=== PATIENT | female | born 1940 | race Caucasian/White ===

== ENCOUNTER → 2017-06-01 | Outpatient (CLI) | payer MEDICARE, OTHER | LOC: LAB.R 08:00 | PROVIDERS: ATTEND Family Medicine | DX: R35.0 Frequency of micturition (principal) | CPT/HCPCS: 87086 ==

== ENCOUNTER 2018-03-23 06:03 | Emergency (ER) | payer MEDICARE, OTHER ==
--- NOTE | 2018-03-23 06:48 | XRAY Report ---
EXAM: CHEST RADIOGRAPHY EXAM DATE: 03/23/2018 06:40 AM. CLINICAL HISTORY: Fever and cough. COMPARISON: 06/01/2017 TECHNIQUE: 2 views. FINDINGS: Lungs/Pleura: No focal opacities evident. No pleural effusion. No pneumothorax. Normal volumes. Mediastinum: Heart and mediastinal contours are unremarkable. Other: Multiple right upper quadrant clips are again noted. Multilevel degenerative changes within th e thoracic spine. IMPRESSION: Stable appearance of the chest without acute cardiopulmonary abnormality. [facility] Referring Provider Line: [phone] SITE ID: [id number]
--- NOTE | 2018-03-23 06:48 | XRAY Preliminary Report ---
Exam: XR CHEST 2 VIEW X-RAY IMPRESSION: Stable appearance of the chest without acute cardiopulmonary abnormality. [facility] SITE ID: [id number]
[2018-03-23 06:54] LABS: BASOPHILS % (AUTO) 0.7 %; EOSINOPHILS % (AUTO) 0.4 %; HGB - HEMOGLOBIN 13.1 g/dL (12.0-16.0); LYMPHOCYTES # (AUTO) 0.9 10^3/uL (1.5-3.5); LYMPHOCYTES % (AUTO) 28.8 %; MEAN CORPUSCULAR HGB CONC 33.3 g/dL (32.0-36.0); MEAN CORPUSCULAR VOLUME 93.3 fL (81.0-99.0); MEAN PLATELET VOLUME 8.2 fL (7.9-10.8); MONOCYTES # (AUTO) 0.5 10^3/uL (0.0-1.0); MONOCYTES % (AUTO) 17.1 %; NEUTROPHILS # (AUTO) 1.7 10^3/uL (1.5-6.6); PLT - PLATELET COUNT 150 10^3/uL (130-450); RED BLOOD COUNT 4.22 10^6/uL (4.20-5.40); RED CELL DISTRIBUTION WIDTH 13.6 % (12.0-15.0); WHITE BLOOD COUNT 3.2 x10^3/uL (4.8-10.8)
[2018-03-23 07:06] LABS: ALBUMIN 3.9 g/dL (3.2-5.5); ALBUMIN/GLOBULIN RATIO 1.2 (1.0-2.2); BILIRUBIN,TOTAL 0.7 mg/dL (0.2-1.0); CALCIUM 8.6 mg/dL (8.5-10.3); CREATININE 0.8 mg/dL (0.4-1.0); TOTAL PROTEIN 7.1 g/dL (6.7-8.2)
[2018-03-23 07:08] LABS: BILIRUBIN,URINE NEGATIVE (NEGATIVE); GLUCOSE, URINE (UA) NEGATIVE (NEGATIVE); KETONES,URINE (UA) NEGATIVE (NEGATIVE); LEUKOCYTE ESTERASE, URINE NEGATIVE (NEGATIVE); NITRITE,URINE NEGATIVE (NEGATIVE); OCCULT BLOOD,URINE NEGATIVE (NEGATIVE); PH,URINE 6.5 PH (5.0-7.5); PROTEIN,URINE NEGATIVE (NEGATIVE); UROBILINOGEN,URINE 0.2 (NORMAL) E.U./dL (NORMAL)
[2018-03-23 07:12] LABS: CLARITY,URINE CLEAR (CLEAR)
[2018-03-23] MEDS: BENZONATATE 100 MG CAPSULE PO STA (07:58)
[2018-03-23] MEDS: guaiFENesin/DEXTROMETHORPHAN 10 ML UDC PO STA (07:58)
--- NOTE | 2018-03-23 08:01 | ED Physician Documentation ---
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 now [place] with 5 days of fever cough fatigue myalgias no GI sx no leg swelling Review of Systems Constitutional: reports: Fever, Chills, Myalgias, Fatigue Respiratory: reports: Dyspnea, Cough GI: denies: Abdominal Pain, Vomiting, Diarrhea Musculoskeletal: denies: Extremity pain, Extremity swelling Neurologic: reports: Generalized weakness Endocrine: denies: Easy bruising / bleeding Immunocompromised: denies: Immunocompromised PD PAST MEDICAL HISTORY - Past Medical History Past Medical History: Yes Cardiovascular: [facility] Musculoskeletal: Osteoarthritis Other Past Medical History: GB Cancer - Past Surgical History Past Surgical History: Yes General: Cholecystectomy, Other Cardiovascular: Coronary stent - Present Medications Home Medications: Ambulatory Orders Medication Instructions Recorded Confirmed Aspirin [Children's Aspirin] 1 tab PO DAILY 03/23/18 03/23/18 Atorvastatin Calcium 40 mg PO DAILY 03/23/18 03/23/18 Benzonatate [Tessalon] 100 mg PO TID PRN #20 capsule 03/23/18 Estradiol 0.5 mg PO 03/23/18 Famotidine 40 mg PO BID 03/23/18 03/23/18 Fexofenadine HCl [Rosa Allergy] 180 mg DAILY 03/23/18 03/23/18 LORazepam [Ativan] 1 tab Q6H PRN 03/23/18 03/23/18 guaiFENesin/DEXTROMETHORPHAN 10 ml PO Q6H PRN #120 ml 03/23/18 [Robitussin Dm] hydroCHLOROthiazide 25 mg DAILY 03/23/18 03/23/18 [Hydrochlorothiazide] - Allergies Allergies/Adverse Reactions: Allergies Allergy/AdvReac Type Severity Reaction Status Date / Time Sulfa (Sulfonamide AdvReac Emesis Verified 03/23/18 06:30 Antibiotics) - Social History Does the pt smoke?: Yes Smoking Status: Current every day smoker Does the pt drink ETOH?: No Does the pt have substance abuse?: No - Immunizations Immunizations are current?: Yes - POLST Patient has POLST: No PD ED PE NORMAL - Vitals Vital signs reviewed: Yes - Neck Neck: Supple, no meningeal sign - Cardiac Cardiac: RRR - Respiratory Respiratory: No respiratory distress, Other (faint ronchi R lung) - Abdomen Abdomen: Soft, Non tender - Derm Derm: Normal color - Extremities Extremities: No tenderness to palpate, Normal ROM s pain, No edema, No calf tenderness / cord - Neuro Neuro: Alert and oriented X 3 Results - Vitals Vitals: Vital Signs - 24 hr 03/23/18 03/23/18 06:05 07:30 Temperature 37.4 C Heart Rate 84 63 Respiratory 18 18 Rate Blood Pressure 123/70 116/62 O2 Saturation 95 93 Oxygen O2 Source Room air - Labs Labs: Laboratory Tests 03/23/18 03/23/18 03/23/18 06:40 06:40 06:40 WBC 3.2 L RBC 4.22 Hgb 13.1 Hct 39.4 MCV 93.3 MCH 31.0 MCHC 33.3 RDW 13.6 Plt Count 150 MPV 8.2 Neut # 1.7 Lymph # 0.9 L [place] # 0.5 Eos # 0.0 Baso # 0.0 Absolute Nucleated RBC 0.00 Nucleated RBC % 0.0 Sodium 132 L Potassium 3.2 L Chloride 97 L Carbon Dioxide 25 Anion Gap 10.0 BUN 16 Creatinine 0.8 Estimated GFR (MDRD) 70 L Glucose 117 H Lactic Acid Calcium 8.6 Total Bilirubin 0.7 AST 29 ALT 25 Alkaline Phosphatase 47 Troponin I < 0.04 B-Natriuretic Peptide Total Protein 7.1 Albumin 3.9 Globulin 3.2 Albumin/Globulin Ratio 1.2 Lipase 28 Urine Color Urine Clarity Urine pH Ur Specific [place] Urine Protein Urine Glucose (UA) Urine Ketones Urine Occult Blood Urine Nitrite Urine Bilirubin Urine Urobilinogen Ur Leukocyte Esterase Ur Microscopic Review Urine Culture Comments Influenza A (Rapid) Influenza B (Rapid) 03/23/18 03/23/18 03/23/18 06:40 06:40 06:50 WBC RBC Hgb Hct MCV MCH MCHC RDW Plt Count MPV Neut # Lymph # [place] # Eos # Baso # Absolute Nucleated RBC Nucleated RBC % Sodium Potassium Chloride Carbon Dioxide Anion Gap BUN Creatinine Estimated GFR (MDRD) Glucose Lactic Acid 0.8 Calcium Total Bilirubin AST ALT Alkaline Phosphatase Troponin I B-Natriuretic Peptide 44 Total Protein Albumin Globulin Albumin/Globulin Ratio Lipase Urine Color YELLOW Urine Clarity CLEAR Urine pH 6.5 Ur Specific [place] 1.020 Urine Protein NEGATIVE Urine Glucose (UA) NEGATIVE Urine Ketones NEGATIVE Urine Occult Blood NEGATIVE Urine Nitrite NEGATIVE Urine Bilirubin NEGATIVE Urine Urobilinogen 0.2 (NORMAL) Ur Leukocyte Esterase NEGATIVE Ur Microscopic Review NOT INDICATED Urine Culture Comments NOT INDICATED Influenza A (Rapid) Influenza B (Rapid) 03/23/18 07:35 WBC RBC Hgb Hct MCV MCH MCHC RDW Plt Count MPV Neut # Lymph # [place] # Eos # Baso # Absolute Nucleated RBC Nucleated RBC % Sodium Potassium Chloride Carbon Dioxide Anion Gap BUN Creatinine Estimated GFR (MDRD) Glucose Lactic Acid Calcium Total Bilirubin AST ALT Alkaline Phosphatase Troponin I B-Natriuretic Peptide Total Protein Albumin Globulin Albumin/Globulin Ratio Lipase Urine Color Urine Clarity Urine pH Ur Specific [place] Urine Protein Urine Glucose (UA) Urine Ketones Urine Occult Blood Urine Nitrite Urine Bilirubin Urine Urobilinogen Ur Leukocyte Esterase Ur Microscopic Review Urine Culture Comments Influenza A (Rapid) Negative Influenza B (Rapid) POSITIVE H - Rads (name of study) CXR Radiology: See rad report (NACPD) PD MEDICAL DECISION MAKING - ED course ED course: 77 y/o f underlying CAD and hx cancer not on chemo now sx for 5 days flu B positive tamiflu unlikely to be beneficial at this point in time will tx symptomatically no pna nl VS feel safe to dc home Departure - Departure Disposition: Home, Self Care Clinical Impression: Influenza B Condition: Good Instructions: ED Flu Follow-Up: Delphine Rajan DO [Primary Care Provider] - Prescriptions: Benzonatate [Tessalon] 100 mg PO TID PRN #20 capsule PRN Reason: to ease cough guaiFENesin/DEXTROMETHORPHAN [Robitussin Dm] 10 ml PO Q6H PRN #120 ml PRN Reason: Cough Comments: You do not have pneumonia but you do have influenza B Antibiotics will not help influenza because it is a virus. There is an anti-viral medication called tamiflu but it is only helpful if started within the first 3 days of symptoms. It is OK for you to go home at this time on symptomatic medications (robitussin DM and tessalon for cough, tylenol for fever and body aches). You need to rest and drink plenty of fluids You may be sick for up to 2 weeks. One of the dangers of influenza is developing a secondary bacterial pneumonia after being run down by the flu - if you abruptly worsen please come back to the ER for another chest xray
[2018-03-23 08:17] VITALS: BP 114/79
[2018-03-23] MEDS: POTASSIUM CHLORIDE 20 MEQ TABLET PO STA (08:22)
== END 2018-03-23 08:24 | disposition home or self-care (01) ==
LOC: ED 06:03
DX: J10.1 Influenza due to other identified influenza virus with other respiratory manifestations (principal); C23 Malignant neoplasm of gallbladder; I25.2 Old myocardial infarction; M19.90 Unspecified osteoarthritis, unspecified site; Z79.82 Long term (current) use of aspirin; F17.200 Nicotine dependence, unspecified, uncomplicated
CPT/HCPCS: 36415; 51701; 71046; 80053; 81001; 81003; 83605; 83690; 83880; 84484; 85025; 87040; 87086; 87275; 87276; 99283; 99284

== ENCOUNTER 2018-03-24 11:50 | Emergency (ER) | payer MEDICARE, OTHER ==
[2018-03-24] MEDS ORDERED: KETOROLAC 60 MG/2 ML VIAL IVP STA (13:44)
[2018-03-24] MEDS ORDERED: SODIUM CHLORIDE 0.9% 1,000 ML IV ONE (13:44)
--- NOTE | 2018-03-24 13:46 | ED Physician Documentation ---
History of Present Illness - Stated complaint Stated Complaint: FLU LIKE SYMPTOM - Chief complaint Chief Complaint: Resp - History obtained from History obtained from: Patient - History of Present Illness Timing: Other (She was seen here yesterday with complaints of a few days worth of cough, myalgias, fevers and chills. Her blood work was notable for a white count of 3.2, potassium that was modestly low and repleted orally, and a positive swab for influenza B. She was called back today because her blood cultures are preliminarily growing gram-positive cocci which per gene testing is coagulase-negative Staphylococcus. She does not feel better today but she does not feel worse per se either. She does not have much of an appetite and still has body aches.) Review of Systems Constitutional: reports: Fever, Chills, Myalgias Respiratory: reports: Cough. denies: Dyspnea GI: denies: Abdominal Pain, Nausea PD PAST MEDICAL HISTORY - Past Medical History Cardiovascular: [place] Musculoskeletal: Osteoarthritis - Past Surgical History Past Surgical History: Yes General: Cholecystectomy, Other Cardiovascular: Coronary stent - Present Medications Home Medications: Ambulatory Orders Medication Instructions Recorded Confirmed Aspirin [Children's Aspirin] 1 tab PO DAILY 03/23/18 03/23/18 Atorvastatin Calcium 40 mg PO DAILY 03/23/18 03/23/18 Benzonatate [Tessalon] 100 mg PO TID PRN #20 capsule 03/23/18 Estradiol 0.5 mg PO 03/23/18 Famotidine 40 mg PO BID 03/23/18 03/23/18 Fexofenadine HCl [Rosa Allergy] 180 mg DAILY 03/23/18 03/23/18 LORazepam [Ativan] 1 tab Q6H PRN 03/23/18 03/23/18 guaiFENesin/DEXTROMETHORPHAN 10 ml PO Q6H PRN #120 ml 03/23/18 [Robitussin Dm] hydroCHLOROthiazide 25 mg DAILY 03/23/18 03/23/18 [Hydrochlorothiazide] - Allergies Allergies/Adverse Reactions: Allergies Allergy/AdvReac Type Severity Reaction Status Date / Time Sulfa (Sulfonamide AdvReac Emesis Verified 03/24/18 11:58 Antibiotics) - Social History Does the pt smoke?: Yes Smoking Status: Current every day smoker Does the pt drink ETOH?: No Does the pt have substance abuse?: No - Immunizations Immunizations are current?: Yes - POLST Patient has POLST: No PD ED PE NORMAL - Vitals Vital signs reviewed: Yes - General General: Alert and oriented X 3, No acute distress - HEENT HEENT: Pharynx benign - Neck Neck: Supple, no meningeal sign, No bony TTP - Cardiac Cardiac: RRR, No murmur - Respiratory Respiratory: No respiratory distress, Clear bilaterally - Abdomen Abdomen: Non tender - Neuro Neuro: Alert and oriented X 3, Normal speech Results - Vitals Vitals: Vital Signs - 24 hr 03/24/18 11:56 Temperature 36.0 C L Heart Rate 72 Respiratory 18 Rate Blood Pressure 120/63 O2 Saturation 97 Oxygen O2 Source Room air - Labs Labs: Laboratory Tests 03/24/18 03/24/18 03/24/18 14:06 14:06 14:06 WBC 4.1 L RBC 4.20 Hgb 13.4 Hct 39.6 MCV 94.4 MCH 32.0 H MCHC 33.9 RDW 14.1 Plt Count 125 L MPV 8.5 Neut # 2.3 Lymph # 1.2 L [place] # 0.5 Eos # 0.0 Baso # 0.0 Absolute Nucleated RBC 0.00 Nucleated RBC % 0.0 Sodium 135 Potassium 3.6 Chloride 99 L Carbon Dioxide 25 Anion Gap 11.0 BUN 20 Creatinine 0.9 Estimated GFR (MDRD) 61 L Glucose 116 H Lactic Acid 1.3 Calcium 8.7 Total Bilirubin 0.8 AST 32 ALT 25 Alkaline Phosphatase 51 Total Protein 7.3 Albumin 4.1 Globulin 3.2 Albumin/Globulin Ratio 1.3 Lipase 24 PD MEDICAL DECISION MAKING - ED course ED course: 77-year-old woman with influenza B was called back to the emergency department for positive blood culture. Given the preliminary result this is by far most likely to be a contaminant. Blood work and blood cultures will be repeated today. Departure - Departure Disposition: 01 Home, Self Care Clinical Impression: Influenza B, Blood bacterial culture positive Condition: Good Record reviewed to determine appropriate education?: Yes Instructions: ED Flu Comments: Given the actual pathogen the ground her blood culture yesterday, coagulase- negative Staphylococcus, I am sure this is a false positive blood culture. Continue your current treatment for influenza B, if today's blood cultures are positive we will call you. Return if worsening.
[2018-03-24 14:14] LABS: BASOPHILS % (AUTO) 0.6 %; EOSINOPHILS % (AUTO) 0.4 %; HGB - HEMOGLOBIN 13.4 g/dL (12.0-16.0); LYMPHOCYTES # (AUTO) 1.2 10^3/uL (1.5-3.5); LYMPHOCYTES % (AUTO) 29.7 %; MEAN CORPUSCULAR HGB CONC 33.9 g/dL (32.0-36.0); MEAN CORPUSCULAR VOLUME 94.4 fL (81.0-99.0); MEAN PLATELET VOLUME 8.5 fL (7.9-10.8); MONOCYTES # (AUTO) 0.5 10^3/uL (0.0-1.0); MONOCYTES % (AUTO) 12.9 %; NEUTROPHILS # (AUTO) 2.3 10^3/uL (1.5-6.6); NEUTROPHILS % (AUTO) 56.4 %; PLT - PLATELET COUNT 125 10^3/uL (130-450); RED CELL DISTRIBUTION WIDTH 14.1 % (12.0-15.0); WHITE BLOOD COUNT 4.1 x10^3/uL (4.8-10.8)
[2018-03-24 14:28] LABS: ALBUMIN 4.1 g/dL (3.2-5.5); ALBUMIN/GLOBULIN RATIO 1.3 (1.0-2.2); BILIRUBIN,TOTAL 0.8 mg/dL (0.2-1.0); CALCIUM 8.7 mg/dL (8.5-10.3); CREATININE 0.9 mg/dL (0.4-1.0); TOTAL PROTEIN 7.3 g/dL (6.7-8.2)
--- NOTE | 2018-03-24 15:29 | ED Physician Documentation ---
ED Addendum - Addendum Addendum: 03/24/18 15:28 unscheduled return visit - chart accessed for follow up and educational purposes
[2018-03-24 15:53] VITALS: BP 109/55
== END 2018-03-24 16:48 | disposition home or self-care (01) ==
LOC: ED 11:50
DX: Z04.8 Encounter for examination and observation for other specified reasons (principal); R78.89 Finding of other specified substances, not normally found in blood
CPT/HCPCS: 36415; 80053; 83605; 83690; 85025; 87040; 96374; 99283

== ENCOUNTER 2018-07-19 11:50 | Outpatient (CLI) | payer MEDICARE, OTHER ==
[2018-07-19] MEDS ORDERED: IOPAMIDOL-300 100 ML VIAL ONE (11:59)
[2018-07-19] MEDS ORDERED: IOPAMIDOL-300 100 ML VIAL IVP ONE (15:00)
--- NOTE | 2018-07-19 15:32 | CT Report ---
Reason: COUGH,GALLBLADDER CANCER Procedure Date: 07/19/2018 Accession Number: [id number] / [id number] Procedure: CT - Chest W/ CPT Code: FULL RESULT: EXAM: CT CHEST EXAM DATE: 07/19/2018 12:35 PM. CLINICAL HISTORY: Cough. Gallbladder cancer. COMPARISONS: None. TECHNIQUE: Routine helical CT imaging was performed through the chest. IV contrast: 100 mL Isovue-300. Reconstructions: Coronal and sagittal. In accordance with CT protocol optimization, one or more of the following dose reduction techniques were utilized for this exam: automated exposure control, adjustment of mA and/or KV based on patient size, or use of iterative reconstructive technique. FINDINGS: Lungs/Pleura: No nodules, bronchial thickening, consolidation, or edema. Pulmonary vasculature is normal. No pericardial or pleural effusion. No pneumothorax. Mediastinum: Normal. No adenopathy or masses. The heart and great vessels are normal. Bones: Unremarkable. Visualized Abdomen: There are cholecystectomy changes seen along the gallbladder fossa region. There is a geographic area of hypodense change in segment 5 adjacent to the gallbladder fossa measuring 4.0 x 3.0 cm with surgical clips seen within (image 62, series 3) which may be related to postoperative collection. A suspicious borderline enlarged lymph node is seen in the vinayak hepatis region measuring up to 2.4 x 2.0 cm (image 58, series 3). There is no biliary dilation. Small fat-containing ventral hernia is seen in the epigastric region. Other: Focal degenerative changes are seen in the visualized upper lumbar spine. No acute osseous abnormality is demonstrated. IMPRESSION: 1. No cardiopulmonary abnormality demonstrated. 2. Postoperative changes related to cholecystectomy. 4.0 x 3.0 cm hypoechoic area along the gallbladder fossa/segment 5 is seen which may be related to postoperative changes. Residual malignancy is not excluded. 3. Borderline prominent vinayak hepatis lymph node, suspicious. Correlation with PET scan could be helpful in further evaluation. 4. Small fat-containing ventral epigastric hernia. [facility]
== END 2018-07-19 11:51 | disposition home or self-care (01) ==
LOC: DI 11:50
PROVIDERS: ATTEND Family Medicine
DX: C23 Malignant neoplasm of gallbladder (principal); R05 Cough; K43.9 Ventral hernia without obstruction or gangrene
CPT/HCPCS: 71260; Q9967

== ENCOUNTER 2019-06-16 11:14 | Outpatient (CLI) | payer MEDICARE, OTHER ==
[2019-06-16] MEDS ORDERED: IOVERSOL 320 100 ML VIAL IVP ONE ×2 (11:30→12:49)
[2019-06-16] MEDS ORDERED: IOVERSOL 320 50 ML VIAL ONE (11:30)
[2019-06-16] MEDS ORDERED: IOVERSOL 320 50 ML VIAL PO ONE (12:49)
--- NOTE | 2019-06-19 12:30 | CT Report ---
Reason: GALLBLADDER CANCER Procedure Date: 06/16/2019 Accession Number: [id number] / [id number] Procedure: CT - Abdomen/Pelvis W CPT Code: FULL RESULT: EXAM: CT ABDOMEN AND PELVIS EXAM DATE: 06/16/2019 12:52 PM. CLINICAL HISTORY: History of gallbladder cancer, lower abdominal pain. COMPARISONS: None. TECHNIQUE: Routine helical CT imaging was performed through the abdomen and pelvis. IV contrast: OPTI 320 100 mL. Enteric contrast: Yes. Reconstructions: Coronal and sagittal. In accordance with CT protocol optimization, one or more of the following dose reduction techniques were utilized for this exam: automated exposure control, adjustment of mA and/or KV based on patient size, or use of iterative reconstructive technique. FINDINGS: Lung Bases: Unremarkable. Liver: Postsurgical changes are seen in the region of the gallbladder fossa with what is presumed to be an intrahepatic biloma, 2.7 x 3.0 x 4.1 cm, image 25 series 3 and image 20 series 5. Other hepatic hypodensities are too small to characterize. Otherwise, no suspicious hepatic mass. Gallbladder/Bile Ducts: Gallbladder surgically absent. Spleen: Normal. Pancreas: Normal. Adrenal Glands: Normal. Kidneys: Partially malrotated left kidney with hypodensity which is too small to characterize and no hydronephrosis. Right kidney is unremarkable. Peritoneal Cavity/Bowel: There is induration of pericecal ascending mesocolon with fat stranding. 1 cm centrally hypodense partially calcified soft tissue nodule in the left perirectal fat, possibly arising from rectosigmoid mesocolon is nonspecific. Remaining sigmoid colon demonstrates diverticulosis without diverticulitis. No abscess is identified. No free fluid or free air. No bowel obstruction. No lymphadenopathy by size criteria. The appendix is not visualized. Pelvic Organs: Pessary is noted in place. Bladder is unremarkable. Vasculature: No aneurysms or other significant abnormality. Bones: No aggressive osseous lesion is detected. Other: None. IMPRESSION: Inflammatory changes of a short segment of pericecal ascending colon, suspect colitis. The appendix is not visualized. In this setting, please correlate to history of appendectomy to ensure that appendicitis is not in the differential. [facility]
== END 2019-06-16 11:15 | disposition home or self-care (01) ==
LOC: LAB 11:14
PROVIDERS: ATTEND Internal Medicine Hematology & Oncology
DX: C23 Malignant neoplasm of gallbladder (principal)
CPT/HCPCS: 74177; Q9967

== ENCOUNTER 2019-07-05 10:17 | Outpatient (CLI) | payer MEDICARE, OTHER ==
--- NOTE | 2019-07-05 20:38 | CONSULTATION NOTE ---
Palliative Care Consultation - Referral Referring Provider: Dr. Clovis Marie Time of Visit: [id number] Referral setting: [facility] Referral Reason: Recurrent Gallbladder Cancer/Anxiety - Information Sources Records reviewed: Previous records reviewed History/Review of Systems obtained from: Patient, Family ( present for visit) Exam limitations: No limitations - History of Present Illness Brief History of Present Illness: This is a 79-year-old woman who is diagnosed with relapsed gallbladder cancer in 09/2018. She had previously received all her care down in [place], and is transitioning her care to the team up here at [facility]. She has felt more like a number in her previous system, and is appreciating the personalize care and support here and [place] be [place]. Her original diagnosis was in 05/2016, she was diagnosed at stage II. She presented originally with abdominal discomfort and was found to have enlarged gallbladder and underwent a laparoscopic cholecystectomy for acute cholecystitis. Unfortunately pathology review revealed a moderate to poorly differentiated adenocarcinoma. She had a partial hepatic tach to ma and retroperitoneal lymph node dissection on 07/2016. And received adjuvant chemotherapy for 6 cycles finishing March/2017. Recurrent disease was found on a PET scan restaging 09/28/2018 which revealed a local recurrence with a portal caval adenopathy. There was still no evidence of distant metastasis. She was not a candidate for surgical resection nor radiation. At that time she went on to do palliative chemotherapy with cis- [place] and gemcitabine from 10/24/2018 until . It is unclear why she received no further chemotherapy, that she came up here for second opinion she did have a repeat PET scan on 03/11/2019 that did reveal persistent portal caval adenopathy although it had improved. She did get a baseline CT of the abdomen pelvis as a benchmark for her current treatment, that did show inflammatory changes of her rdoz-hyzt-taohcolty colon; remaining sigmoid colon demonstrated diverticulitis for which she was treated with antibiotics and has had improvement. Patient does understand that her treatment is palliative in intent, she is quite anxious and overwhelmed by her change in health. She would like to be included in conversation and have a better understanding of her current disease burden as well as her prognosis. She herself at baseline is quite active has always been independent and likes to feel in control. She is feeling somewhat distressed, with her decreased functional status, poor activity tolerance, and changes in her physical and emotional well-being. She is hoping for improved quality of life, as well as quantity and is meeting with palliative care to establish rapport, explore goals of care, and continue to expand understanding of disease and trajectory Medical/Surgical History - Past Medical History Cardiovascular: reports: [place] Respiratory: reports: COPD Endocrine/Autoimmune: reports: HyPOthyroidism (currently not on any treatment; hx as a young adult) GI: reports: Diverticulitis Psych: reports: Depression, Anxiety Musculoskeletal: reports: Osteoarthritis, Other (carpal tunnel syndrome bilateral) MRSA Hx?: No - Past Surgical History General: reports: Cholecystectomy, Other Cardiovascular: reports: Coronary stent, Other (portacath x 1 year) Social History - Living Situation Living arrangement: At home Living Situation: With spouse/s.o. Support System: She and her have been 18 years. Between the 2 of them may have a combination of 10 children. They did come to [facility] about 10 years ago. He actually met through a [employer] group. Patient has long worked in the [employer] for a variety of different roles, and finds her marina quite important. Unfortunately she is dealing with her parents estate, and this is because some estrangement in her family of origin and much stress.She does feel like she has friends and neighbors here on the [place], and well supported. Her main sources support is her . Family History - Family History Family History: Mother: , CAD, Cancer, Father: , CAD, Brother: , Renal Disease/Failure Medications/Allergies - Medications Home Medications: Ambulatory Orders Medication Instructions Recorded Confirmed Atorvastatin Calcium 40 mg PO DAILY 03/23/18 07/06/19 Estradiol 0.5 mg PO DAILY 03/23/18 07/06/19 Famotidine 40 mg PO BID 03/23/18 07/06/19 Fexofenadine HCl [Rosa Allergy] 180 mg DAILY 03/23/18 07/06/19 LORazepam [Ativan] 0.5 mg PO Q6H PRN 03/23/18 07/06/19 guaiFENesin/DEXTROMETHORPHAN 10 ml PO Q6H PRN #120 ml 03/23/18 07/06/19 [Robitussin Dm] Losartan [Cozaar] 25 mg PO DAILY 04/20/19 07/06/19 Ascorbic Acid [Vitamin C] 1,000 mg PO DAILY 06/05/19 07/06/19 Aspirin [Aspirin EC] 1 tab PO DAILY 06/05/19 07/06/19 Azelaic Acid [Finacea] 1 applic TD BID PRN 06/05/19 07/06/19 Calcium Citrate/Vitamin D3 1 tab PO DAILY 06/05/19 07/06/19 [Citracal-Vit D3 200 mg-250 Tab] Cyanocobalamin (Vitamin B-12) 1,000 mcg PO DAILY 06/05/19 07/06/19 [B-12] Ellura 1 tab PO DAILY 06/05/19 07/06/19 Lactobacillus Rhamnosus GG 1 cap PO DAILY 06/05/19 07/06/19 [Culturelle] hydroCHLOROthiazide 50 mg PO DAILY 06/05/19 07/06/19 [Hydrochlorothiazide] Ondansetron [Ondansetron Odt] 8 mg PO Q8HR PRN 07/04/19 07/06/19 - Allergies Allergies/Adverse Reactions: Allergies Allergy/AdvReac Type Severity Reaction Status Date / Time Sulfa (Sulfonamide AdvReac Emesis Verified 07/04/19 10:25 Antibiotics) Review of Systems - Constitutional Constitutional: reports: Fatigue, Weakness, Weight loss. denies: Fever, Chills - Eyes Eyes: reports: Vision loss, Corrective lenses - Ears, Nose & Throat Ears, Nose & Throat: reports: Postnasal drainage - Cardiovascular Cardiovascular: reports: Decr. exercise tolerance - Respiratory Respiratory: reports: Cough, Other (smoking 1 pack every 3 days). denies: SOB at rest - Gastrointestinal Gastrointestinal: reports: Abdominal pain, Bloating, Poor appetite, Early satiety, Other (following diverticulitis diet). denies: Constipation, Diarrhea - Genitourinary Genitourinary: reports: Incontinence, Other (patient has a pessary; on estrogen for menopausal symptoms of mood/hot flashes/vaginal discomfort) - Musculoskeletal Musculoskeletal: reports: Back pain, Muscle weakness - Integumentary Integumentary: reports: Dryness, Other (hands roughened) - Neurological Neurological: reports: General weakness, Memory problems (mild STM) - Psychiatric Psychiatric: reports: Depression, Anxiety - Hematologic/Lymphatic Hematologic/Lymphatic: reports: Anemia - All Other Systems All Other Systems: reports: Reviewed and negative Physical Exam - Physical Exam General Appearance: positive: Mild distress, Anxious Eyes Bilateral: positive: Normal inspection ENT: positive: No signs of dehydration Neck: positive: No JVD, Trachea midline Cardiovascular: positive: Regular rate & rhythm Respiratory: positive: No respiratory distress, Diminished throughout. negative: Wheezes, Rales, Rhonchi Abdomen: positive: Soft, Tenderness Skin: positive: Pallor, Dryness Extremities: positive: No pedal edema Neurologic/Psychiatric: positive: Oriented x3, Depressed mood/affect Palliative Care - POLST Patient has POLST: No Pain: Pain improved, Comment (Patient does describe a deep achy visceral pain, mostly located in her left upper quadrant, she does have some right upper quadrant discomfort as well that has improved with antibiotics. Overall she does have some abdominal pressure and feels somewhat bloated. 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 She is finding her lack of energy, her activity intolerance, and needing to slow down quite frustrating. She is able to manage her own ADLs, but finds herself quite tired easily. I would put her at a PPS of 70% - Palliative Care Discussion: Patient does understand her treatment is palliative in nature, she had a fairly difficult experience with the surgeon and this interaction has left her somewhat reeling in the context of what to expect. She feels she would cope better if she understand a little bit more about her prognosis, though she is quite anxious and tearful when looking towards the future. She is hoping for both time and quality of life, we did spend some time discussing what quality of life meant for her. She has had a decline in her functional status as well as both physical and emotional changes and this is been difficult for her. Counseling and exploration was done regarding her anxiety, her previous coping styles, and previous experiences. Exploring ways to strengthen her emotional well-being and reframe her current situation. Counseling also provided regarding the role of palliative care for focus on quality of life issues,and to support her and her through this journey, hoping for the best but also addressing important issues along the way in dealing with her disease. We did not initiate discussion on advanced directives, will follow up with Dr. Marie on prognosis and patient's request for information. Results - Lab Results Lab results reviewed: Yes Impression and Recommendations - Palliative Care Impression: This is a rashi 79-year-old woman who unfortunately has relapsed gallbladder cancer who is currently receiving palliative chemotherapy. She presents with moderate symptom burden, with significant anxiety and depressive symptoms. Palliative care to provide support her pain and symptom management, anticipatory guidance, and advanced care planning. Recommendations/Counseling Done: 1. Weight loss. Patient has had 6 pound weight loss over the course of the last few months. She does present with early satiety, history of diverticulitis, and now needing diet modifications. Counseling provided and reinforced regarding small frequent meals, addition of Ensure and supplements, maintaining of hydration and goal to lose no further weight versus weight gain. 2. Fatigue. This is multifactorial in origin. Patient does present with anemia, is to have iron studies. Patient reports a history of hypothyroidism as a young adult, is wondering if this could be adding to it will add thyroid studies to her next blood draw. 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 3. Anxiety. Patient does present with history of anxiety, but does appear exacerbated. She is quite tearful, I suspect this is mixed with her depressive symptoms. Patient most likely would benefit from addition of Venlafaxine, patient hesitant to add medications will continue to explore. Counseling provided regarding the role as a tool in the management of her emotional well- being with her treatment. Counseling provided regarding cognitive behavioral approaches for strengthening current coping, including accessing her [place] community, she would be interested in meeting with the palliative care oil well shooter. Will make a referral. Counseling provided regarding reframing in the context of a "new normal". 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 4. Relapsed gallbladder cancer. Patient would like more information particularly somewhat visual, will follow up with Dr. Solano to review scans and his sister with understanding regarding both her current tumor burden and she would like more information on her prognosis. Though she gets quite anxious and tearful about this, she does feel like she does better with information. She is feeling quite confident and comfortable with the MAC team and her current treatment regimen. 5. Tobacco cessation. Patient is a smoker since age 42, does use this is part of her coping mechanisms. Does understand this is not in her best interest, we discussed just incrementally cutting down, and she does have chronic cough, and setting goals for 1 pack to last 4 days versus 3 days. 6. Advanced care planning. Given patient's level of anxiety and feeling overwhelmed, palliative care setting was in the context of establishing rapport, exploring symptom burden, patient's understanding of disease and coping mechanisms.Will build on this in future visits. Time Spent: 75 minutes with greater than 50% of this done in counseling regarding goals of care, anxiety and depression, role of palliative care, and anticipatory guidance. Plan to follow-up with Dr. Marie regarding prognosis, will add thyroid studies to next blood draw, and plan to meet again in 1 week
== END 2019-07-05 10:18 | disposition home or self-care (01) ==
LOC: PC 10:17
PROVIDERS: ATTEND Nurse Practitioner Adult Health
DX: Z51.5 Encounter for palliative care (principal); R63.4 Abnormal weight loss; R68.81 Early satiety; R53.83 Other fatigue; F41.9 Anxiety disorder, unspecified; F32.9 Major depressive disorder, single episode, unspecified; C23 Malignant neoplasm of gallbladder; F17.210 Nicotine dependence, cigarettes, uncomplicated; Z79.899 Other long term (current) drug therapy; Z79.82 Long term (current) use of aspirin
CPT/HCPCS: 99205

== ENCOUNTER 2019-07-12 12:17 | Outpatient (CLI) | payer MEDICARE, OTHER ==
--- NOTE | 2019-07-12 14:09 | CONSULTATION NOTE ---
Palliative Care Follow Up - Referral Referring Provider: Dr. Clovis Marie Time of Visit: Referral setting: [facility] Referral Reason: Fatigue/anxiety/Gallbladder CA - Information Sources Records reviewed: RN notes reviewed, Previous records reviewed History/Review of Systems obtained from: Patient, Family ( at visit) Exam limitations: No limitations - History of Present Illness Update Brief HPI Update: This is a rashi 79-year-old woman who was diagnosed with relapsed gallbladder cancer 09/2018. Additionally her care appeared to would be island. She was to receive her cis-[place] and gemcitabine, but was neutropenic with a WBC of 2.3 and neutrophils 0.5. She also is quite anemic with a hemoglobin 9.1 and hematocrit of 27.2. Does complain of severe fatigue, activity intolerance, and breathlessness with activity. Despite her underlying anxiety, she does seem to be taking this in stride, she is getting a liter of fluid, and will be receiving some Neupogen. Patient has had chemotherapy before, and is not overtly concerned, her goal though is to better understand her disease process right n ow, and is looking forward to her appointment with Dr. Montejo. She reports that her abdominal pain is much improved, she does have some mild left upper quadrant tenderness on palpation, her right-sided discomfort has resolved. She continues with high anxiety, though did take a Lorazepam previous to her visit and feels like she is doing better today. She does have early satiety, denies nausea, and is working improving her intake. Social History - Living Situation Living arrangement: At home Living Situation: With spouse/s.o. Support System: She and her travel up to would be often in the summer, they do have a home in [place]. They have been for 18 years, have a combination between the 2 of them of 10 children and multiple grandchildren and great- grandchildren. She is feeling good about transitioning her care. Medications/Allergies - Medications Home Medications: Ambulatory Orders Medication Instructions Recorded Confirmed Atorvastatin Calcium 40 mg PO DAILY 03/23/18 07/12/19 Estradiol 0.5 mg PO DAILY 03/23/18 07/12/19 Famotidine 40 mg PO BID 03/23/18 07/12/19 Fexofenadine HCl [Rosa Allergy] 180 mg DAILY 03/23/18 07/12/19 LORazepam [Ativan] 0.5 mg PO Q6H PRN 03/23/18 07/12/19 guaiFENesin/DEXTROMETHORPHAN 10 ml PO Q6H PRN #120 ml 03/23/18 07/12/19 [Robitussin Dm] Losartan [Cozaar] 50 mg PO DAILY 04/20/19 07/12/19 Ascorbic Acid [Vitamin C] 1,000 mg PO DAILY 06/05/19 07/12/19 Aspirin [Aspirin EC] 1 tab PO DAILY 06/05/19 07/12/19 Azelaic Acid [Finacea] 1 applic TD BID PRN 06/05/19 07/12/19 Calcium Citrate/Vitamin D3 1 tab PO DAILY 06/05/19 07/12/19 [Citracal-Vit D3 200 mg-250 Tab] Cyanocobalamin (Vitamin B-12) 1,000 mcg PO DAILY 06/05/19 07/12/19 [B-12] Ellura 1 tab PO DAILY 06/05/19 07/12/19 Lactobacillus Rhamnosus GG 1 cap PO DAILY 06/05/19 07/12/19 [Culturelle] hydroCHLOROthiazide 25 mg PO DAILY 06/05/19 07/12/19 [Hydrochlorothiazide] Ondansetron [Ondansetron Odt] 8 mg PO Q8HR PRN 07/04/19 07/12/19 Potassium Chloride [Micro-K] 20 meq PO DAILY 07/12/19 07/12/19 - Allergies Allergies/Adverse Reactions: Allergies Allergy/AdvReac Type Severity Reaction Status Date / Time Sulfa (Sulfonamide AdvReac Emesis Verified 07/04/19 10:25 Antibiotics) Review of Systems - Constitutional Constitutional: reports: Fatigue, Weakness, Weight loss. denies: Fever, Chills - Eyes Eyes: reports: Vision loss, Corrective lenses - Ears, Nose & Throat Ears, Nose & Throat: reports: Nasal congestion (allergies). denies: Mouth lesions - Cardiovascular Cardiovascular: reports: Exertional dyspnea, Decr. exercise tolerance - Respiratory Respiratory: reports: Cough (smoker's cough), SOB with exertion, Other (continues smoking). denies: Wheezing, SOB at rest - Gastrointestinal Gastrointestinal: denies: Constipation, Diarrhea, Nausea - Genitourinary Genitourinary: denies: Dysuria - Musculoskeletal Musculoskeletal: reports: Muscle weakness - Integumentary Integumentary: reports: Rash (rosacia), Dryness - Neurological Neurological: reports: General weakness - Psychiatric Psychiatric: reports: Depression, Anxiety - Hematologic/Lymphatic Hematologic/Lymphatic: reports: Anemia, Other (recently treated for diverticulitis) - All Other Systems All Other Systems: reports: Reviewed and negative Physical Exam - Vital Signs Temperature: 36.6 C Pulse Rate: 64 Respiratory Rate: 18 Blood Pressure: 115/61 - Physical Exam General Appearance: positive: Alert, Anxious Eyes Bilateral: positive: Normal inspection ENT: positive: No signs of dehydration. negative: Oral lesions Neck: positive: No JVD, Trachea midline Cardiovascular: positive: Regular rate & rhythm Respiratory: positive: No respiratory distress, Diminished throughout. negative: Wheezes, Rales, Rhonchi Abdomen: positive: Soft, Tenderness (LUQ improved) Skin: positive: Pallor, Dryness Extremities: positive: No pedal edema Neurologic/Psychiatric: positive: Oriented x3, Mood/affect nml, Weakness Palliative Care - POLST Patient has POLST: No POLST Status: Full Code Pain: Pain improved (LUQ; mild and improved right sided discomfort resolved) Tiredness/Fatigue: Severe (7-10) Drowsiness/Sedation: Moderate (4-6) Nausea: None Depression: Mild (1-3) Anxiety: Moderate (4-6) Dyspnea: Mild (1-3) Anorexia: Mild (1-3) Sleep: Variable sleep pattern Performance Status: Patient is feeling much more fatigued and with less tolerance of activity. She is trying to pace herself and take short frequent walks. She is able to manage her own ADLs, counseling provided regarding the impact of anemia on fatigue and activity. - Palliative Care Discussion: Less anxious today, she is quite though wanting to better be able to understand where her disease is that, as well as what to expect. We did discuss in the context if she wanted information around prognosis, she feels this would help her better plan and cope. Though she is quite upset at the recurrence of her disease, as well as her experiences with providers up to this point. She does feel quite confident in Dr. Marie, And is hopeful for not only quality of life, but also prolonged quantity of life as well. She wants to do "what I can do to get better". We revisited some of her past positive coping mechanisms, and th ings have brought her supa. We discussed in the context of meeting again after Dr. Solano's appointment, to further discuss anticipatory guidance and advanced care planning. Results - Lab Results Lab results reviewed: Yes Lab and Imaging Results: 07/04 potassium 3.2; glucose 180 Impression and Recommendations - Palliative Care Impression: This is a rashi 79-year-old woman who has relapsed gallbladder cancer, who now presents with palencia cytopenia. She is currently receiving palliative chemotherapy, with improved symptom burden, but significant anxiety and fatigue. Palliative care to provide support for pain and symptom management, an ticipatory guidance and advanced care planning. Recommendations/Counseling Done: 1. Fatigue. This is multifactorial in origin. Counseling presented regarding patient's anemia, she is due to have iron studies. She will with her labs on Wednesday get a TSH, consult with Dr. Marie regarding preferred panel. Patient does have a history of hypothyroidism. Patient counseled to continue short periods of activity, balancing with pacing herself. 2. Hypokalemia. Patient with fatigue, will go ahead and do potassium replacement in the context of following as patient is on losartan. Will have patient initiate with potassium capsules 10 mEq 2 tabs daily until follow-up with labs next week. Patient does have issues with swallowing medications, consult with pharmacist best formulation to use. Did order from [employer]. 3. Anxiety. Patient does present with a history of anxiety, continues to be fluctuating for patient and often interferes in her quality of life. Patient again would most likely benefit from the addition of venlafaxine, but will await revisiting again until after consult with oncology. 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 4. Relapsed gallbladder cancer. Will reach out to Dr. Marie regarding prognostication and patient's hope to be able to review scans and further information regarding her treatment plan. 5. Advanced care planning. Will do courtesy check-in regarding labs and potassium next week, plan to schedule visit after meeting with Dr. Marie to be able to do further conversations regarding advanced care planning. Time Spent: 40 minutes with greater than 50% of this done in counseling and coordination of care with MAC team and oncologist, palliative care to continue to provide support for anxiety, anticipatory guidance, and Advanced care planning.
== END 2019-07-12 12:18 | disposition home or self-care (01) ==
LOC: PC 12:17
PROVIDERS: ATTEND Nurse Practitioner Adult Health
DX: Z51.5 Encounter for palliative care (principal); R53.83 Other fatigue; E87.6 Hypokalemia; F41.9 Anxiety disorder, unspecified; D61.818 Other pancytopenia; C23 Malignant neoplasm of gallbladder; F17.200 Nicotine dependence, unspecified, uncomplicated; Z79.899 Other long term (current) drug therapy
CPT/HCPCS: 99215

== ENCOUNTER 2019-07-13 08:01 | Outpatient (CLI) | payer MEDICARE, OTHER | END 2019-07-13 08:02 | disposition critical access hospital (66) | LOC: EMS 08:01 | PROVIDERS: ATTEND Surgery | DX: M54.5 Low back pain (principal) | CPT/HCPCS: A0425; A0429 ==

== ENCOUNTER 2019-07-13 08:21 | Emergency (ER) | payer MEDICARE, OTHER ==
[2019-07-13 09:13] LABS: BASOPHILS % (AUTO) 0.7 %; EOSINOPHILS % (AUTO) 0.3 %; HGB - HEMOGLOBIN 8.7 g/dL (12.0-16.0); LYMPHOCYTES % (AUTO) 20.3 %; MEAN CORPUSCULAR HGB CONC 33.1 g/dL (32.0-36.0); MEAN CORPUSCULAR VOLUME 99.6 fL (81.0-99.0); MEAN PLATELET VOLUME 9.9 fL (7.9-10.8); MONOCYTES % (AUTO) 9.7 %; NEUTROPHILS % (AUTO) 68.3 %; PLT - PLATELET COUNT 179 10^3/uL (130-450); RED BLOOD COUNT 2.64 10^6/uL (4.20-5.40); WHITE BLOOD COUNT 10.2 x10^3/uL (4.8-10.8)
[2019-07-13 09:22] LABS: ALBUMIN 3.6 g/dL (3.2-5.5); ALBUMIN/GLOBULIN RATIO 1.3 (1.0-2.2); BILIRUBIN,TOTAL 0.5 mg/dL (0.2-1.0); CALCIUM 8.5 mg/dL (8.5-10.3); TOTAL PROTEIN 6.4 g/dL (6.7-8.2)
[2019-07-13] MEDS ORDERED: LIDOCAINE VISCOUS 2% 15 ML UDC MM STA (09:26)
[2019-07-13] MEDS ORDERED: MAG HYDROX/AL HYDROX/SIMETH 30 ML UDC PO STA (09:26)
--- NOTE | 2019-07-13 09:36 | XRAY Report ---
Reason: chest pain Procedure Date: 07/13/2019 Accession Number: [id number] / [id number] Procedure: XR - Chest 1 View X-Ray CPT Code: 98565 FULL RESULT: EXAM: CHEST RADIOGRAPHY EXAM DATE: 07/13/2019 09:18 AM. CLINICAL HISTORY: Chest pain. COMPARISON: CHEST 2 VIEW 03/23/2018 6:25 AM CHEST W/ 07/19/2018 12:29 PM. TECHNIQUE: 1 view. FINDINGS: Lungs/Pleura: No focal opacities evident. No pleural effusion. No pneumothorax. Mediastinum: Heart size is stable per aorta is mildly tortuous. Other: Right IJ portacatheter is present with the tip in the mid SVC. Surgical clips are seen in the right upper quadrant, as before. IMPRESSION: 1. No acute disease in the chest. RADIA
[2019-07-13 09:43] LABS: ABNORMAL LYMPHS % (MANUAL) 0 %
[2019-07-13 09:48] LABS: BAND NEUTROPHILS % (MANUAL) 23 %; DIFFERENTIAL COMMENT MANUAL DIFFERENTIAL; LYMPHOCYTES # (MANUAL) 3.5 10^3/uL (1.5-3.5); LYMPHOCYTES % (MANUAL) 34 %; METAMYELOCYTES % (MANUAL) 1 %; MONOCYTES # (MANUAL) 0.6 10^3/uL (0.0-1.0)
[2019-07-13 09:49] LABS: PLATELET ESTIMATE, MANUAL NORMAL (130-450,000) (NORMAL)
--- NOTE | 2019-07-13 10:12 | ED Physician Documentation ---
History of Present Illness - Stated complaint Stated Complaint: BACK PX - Chief complaint Chief Complaint: Cardiac - History obtained from History obtained from: Patient - Additonal information Additional information: The patient is a 79-year-old female with a history of relapsed gallbladder cancer, who underwent Neupogen injection yesterday, and who presents with anterior chest and lower back pain. She was initially diagnosed with gallbladder cancer in 2014. She was diagnosed with relapse in September 2018. She was to get chemotherapy treatment yesterday, but was found to be pancytopenic with a white count of 2.3 with 0.5 neutrophils, hemoglobin 9.1, and hematocrit 27.2. She was therefore not given chemotherapy, but was given Neupogen injection, and supplemental iron. She had one episode of vomiting last night. This morning she had bone pain in her anterior chest and in her back. She denies cough, shortness of breath, abdominal pain, or dysuria. Her past medical history, in addition to the above, is significant for coronary artery disease with [place] at age 57, and coronary stent placement. Review of Systems Constitutional: reports: Fatigue. denies: Fever Ears: denies: Tinnitus/ringing Nose: denies: Congestion Throat: denies: Sore throat Cardiac: reports: Chest pain / pressure Respiratory: denies: Dyspnea, Cough GI: reports: Vomiting (Once last night.). denies: Abdominal Pain, Diarrhea : denies: Dysuria Skin: denies: Rash Musculoskeletal: reports: Back pain Neurologic: reports: Generalized weakness. denies: Focal weakness, Numbness, Headache PD PAST MEDICAL HISTORY - Past Medical History Cardiovascular: [place] Respiratory: COPD Endocrine/Autoimmune: HyPOthyroidism GI: Diverticulitis, Other (Gallbladder cancer) Psych: Depression, Anxiety Musculoskeletal: Osteoarthritis, Other - Past Surgical History Past Surgical History: Yes General: Cholecystectomy, Other Cardiovascular: Coronary stent, Other - Present Medications Home Medications: Ambulatory Orders Medication Instructions Recorded Confirmed Atorvastatin Calcium 40 mg PO DAILY 03/23/18 07/12/19 Estradiol 0.5 mg PO DAILY 03/23/18 07/12/19 Famotidine 40 mg PO BID 03/23/18 07/12/19 Fexofenadine HCl [Rosa Allergy] 180 mg DAILY 03/23/18 07/12/19 LORazepam [Ativan] 0.5 mg PO Q6H PRN 03/23/18 07/12/19 guaiFENesin/DEXTROMETHORPHAN 10 ml PO Q6H PRN #120 ml 03/23/18 07/12/19 [Robitussin Dm] Losartan [Cozaar] 50 mg PO DAILY 04/20/19 07/12/19 Ascorbic Acid [Vitamin C] 1,000 mg PO DAILY 06/05/19 07/12/19 Aspirin [Aspirin EC] 1 tab PO DAILY 06/05/19 07/12/19 Azelaic Acid [Finacea] 1 applic TD BID PRN 06/05/19 07/12/19 Calcium Citrate/Vitamin D3 1 tab PO DAILY 06/05/19 07/12/19 [Citracal-Vit D3 200 mg-250 Tab] Cyanocobalamin (Vitamin B-12) 1,000 mcg PO DAILY 06/05/19 07/12/19 [B-12] Ellura 1 tab PO DAILY 06/05/19 07/12/19 Lactobacillus Rhamnosus GG 1 cap PO DAILY 06/05/19 07/12/19 [Culturelle] hydroCHLOROthiazide 25 mg PO DAILY 06/05/19 07/12/19 [Hydrochlorothiazide] Ondansetron [Ondansetron Odt] 8 mg PO Q8HR PRN 07/04/19 07/12/19 Potassium Chloride [Micro-K] 20 meq PO DAILY 07/12/19 07/12/19 - Allergies Allergies/Adverse Reactions: Allergies Allergy/AdvReac Type Severity Reaction Status Date / Time Sulfa (Sulfonamide AdvReac Emesis Verified 07/04/19 10:25 Antibiotics) - Social History Does the pt smoke?: Yes Smoking Status: Current some day smoker Does the pt drink ETOH?: No Does the pt have substance abuse?: No - Immunizations Immunizations are current?: Yes - POLST Patient has POLST: No PD ED PE NORMAL - Vitals Vital signs reviewed: Yes (Borderline systolic hypertension initially.) - General General: Alert and oriented X 3, Well developed/nourished - HEENT HEENT: Atraumatic, Pharynx benign - Neck Neck: No adenopathy, No JVD - Cardiac Cardiac: RRR - Respiratory Respiratory: No respiratory distress, Clear bilaterally - Abdomen Abdomen: Soft, Non tender - Back Back: No CVA TTP, No spinal TTP - Derm Derm: No rash - Extremities Extremities: No edema, No calf tenderness / cord - Neuro Neuro: Alert and oriented X 3, No motor deficit, Normal speech Results - Vitals Vitals: Oxygen O2 Source Room air - EKG (time done) 08:30 Rate: Rate (enter#) (68) Rhythm: NSR [place]: Normal Intervals: Normal CO Ischemia: Normal ST segments Other comments: Other comments (RSR' in V1, consistent with RVH.) Compare to prior EKG: Old EKG unavailable Computer interpretation: Agree with computer - Labs Labs: Laboratory Tests 07/13/19 07/13/19 07/13/19 08:55 08:55 08:55 WBC 10.2 RBC 2.64 L Hgb 8.7 L Hct 26.3 L MCV 99.6 H MCH 33.0 H MCHC 33.1 RDW 14.0 Plt Count 179 MPV 9.9 Neut # (Auto) Not Reportable Lymph # (Auto) Not Reportable [place] # (Auto) Not Reportable Eos # (Auto) Not Reportable Baso # (Auto) Not Reportable Absolute Nucleated RBC Not Reportable Total Counted 100 Band Neuts % (Manual) 23 H Abnorm Lymph % (Manual) 0 Metamyelocytes % 1 H Nucleated RBC % Not Reportable Neutrophils # (Manual) 6.0 Lymphocytes # (Manual) 3.5 Monocytes # (Manual) 0.6 Eosinophils # (Manual) 0.0 Basophils # (Manual) 0.0 Differential Comment MANUAL DIFFERENTIAL Manual Slide Review Indicated WBC Morphology 1+ VACUOLATION Platelet Estimate NORMAL (130-450,000) RBC Morph Micro Appear 1+ ANISOCYTOSIS Sodium 142 Potassium 4.1 Chloride 107 Carbon Dioxide 26 Anion Gap 9.0 BUN 18 Creatinine 1.0 Estimated GFR (MDRD) 54 L Glucose 92 Calcium 8.5 Total Bilirubin 0.5 AST 21 ALT 19 Alkaline Phosphatase 50 Troponin I High Sens 6.7 Total Protein 6.4 L Albumin 3.6 Globulin 2.8 Albumin/Globulin Ratio 1.3 Lipase 28 - Rads (name of study) 1-view CXR Radiology: Prelim report reviewed, EMP read contemporaneously, See rad report (No acute disease in the chest.) PD MEDICAL DECISION MAKING - ED course Complexity details: reviewed old records, reviewed results, re-evaluated patient, considered differential, d/w patient, d/w family, d/w cosmetic sales consultant ED course: The patient's presentation is most consistent with bone pain related to Neupogen injection. Coronary ischemia was considered, given her past history of coronary artery disease, but her symptoms are atypical for cardiac ischemia. In addition her EKG reveals no acute ischemic abnormalities, and high-sensitivity troponin is negative. CBC reveals white count that is significantly improved today from yesterday at 10.2. She remains anemic with a hemoglobin of 8.7, and hematocrit 26.3. Treatment in the emergency department included administration of GI cocktail which provided slight improvement. I discussed her condition with Dr. Marie, who confirms that these symptoms are common with Neupogen injection, and advises administration of Claritin. 10 mg Claritin was administered orally. At the time of discharge the patient's symptoms had improved. She is being discharged with prescription for Claritin. I discussed with her and her family the diagnosis, outpatient treatment and follow-up, as well as potentially worrisome signs or symptoms that should prompt reevaluation in the emergency department. Departure - Departure Disposition: 01 Home, Self Care Clinical Impression: Gallbladder cancer Back pain Qualifiers: Back pain location: low back pain Chronicity: acute Back pain laterality: midline Sciatica presence: without sciatica Qualified Code(s): M54.5 - Low back pain Anemia Qualifiers: Anemia type: unspecified type Qualified Code(s): D64.9 - Anemia, unspecified Condition: Stable Instructions: ED Neck Back Pain General Follow-Up: Delphine Rajan DO [Primary Care Provider] - Clovis Marie MD [Physician No Access] - Comments: Continue your previously prescribed medications. Follow-up with Dr. Marie as planned. Return to the emergency department if you develop increasing pain, shortness of breath, persistent vomiting, or otherwise worsening symptoms. Discharge Date/Time: 07/13/19 11:17
[2019-07-13] MEDS ORDERED: LORATADINE 10 MG TABLET PO STA (10:25)
[2019-07-13 10:57] VITALS: BP 115/60
== END 2019-07-13 11:17 | disposition home or self-care (01) ==
LOC: EDUNIT# → ED 08:21
DX: C23 Malignant neoplasm of gallbladder (principal); M54.5 Low back pain; D64.9 Anemia, unspecified; F17.200 Nicotine dependence, unspecified, uncomplicated; Z79.899 Other long term (current) drug therapy
CPT/HCPCS: 36415; 71045; 80053; 83690; 84484; 85025; 93005; 99284; A9270

== ENCOUNTER 2019-07-19 10:08 | Outpatient (CLI) | payer MEDICARE, OTHER | END 2019-07-19 10:09 | disposition home or self-care (01) | LOC: PC 10:08 | PROVIDERS: ATTEND Nurse Practitioner Adult Health | DX: Z51.5 Encounter for palliative care (principal); F41.9 Anxiety disorder, unspecified; Z79.899 Other long term (current) drug therapy ==

== ENCOUNTER 2019-08-16 10:08 | Outpatient (CLI) | payer MEDICARE, OTHER ==
--- NOTE | 2019-08-16 14:30 | CONSULTATION NOTE ---
Palliative Care Follow Up - Referral Referring Provider: Dr. Clovis Marie Time of Visit: 09-19 Referral setting: [facility] [place] Referral Reason: Anxiety/Relapsed Gallbladder CA - Information Sources Records reviewed: RN notes reviewed, Previous records reviewed History/Review of Systems obtained from: Patient Exam limitations: No limitations - History of Present Illness Update Brief HPI Update: This is a 79 year old woman with relapsed gallbladder cancer, with poor tolerance of her last palliative chemotherapy of cis-salamatof/gemcitabine. She experienced severe neutropenia, severe fatigue, and persistent nausea. She is currently going to start radiation therapy with Dr. Sergio Mercado at [place], for concurrent chemoradiation with Xeloda this next week. She presents is quite anxious today, had had her chemo teaching session, but still with multiple questions. She is currently receiving 1 unit of packed red blood cells, she continues with anemia, as feeling somewhat overwhelmed by her symptom burden as well as the uncertainty of her future. Patient's past medical history includes original gallbladder cancer diagnosed at stage II 05/2016, status post partial hepatectomy/choli/erick dissection 07/2016, and previous gemcitabine 10/2016 to 03/2017. She was diagnosed with relapsed gallbladder cancer 09/2018. She has underlying COPD, continues to smoke, hypothyroidism, diverticulitis, depression/anxiety, osteoarthritis, and carpal tunnel syndrome. His coronary artery disease with a coronary stent, and Port -A-Cath placement. Social History - Living Situation Living arrangement: At home Living Situation: With spouse/s.o. Support System: Patient and her were for 18 years, he is been down in [place] the last few weeks. They do have a combination of 10 children between the 10 of them, with multiple grandchildren and great-grandchildren. Her son is currently with her and has been supporting her this last few weeks. She is relocated to the [facility], she had been going back and forth, but this is too overwhelming at this point and feels like her care is well managed here. Medications/Allergies - Medications Home Medications: Ambulatory Orders Medication Instructions Recorded Confirmed Atorvastatin Calcium 40 mg PO DAILY 03/23/18 08/14/19 Estradiol 0.5 mg PO DAILY 03/23/18 08/14/19 Famotidine 40 mg PO BID 03/23/18 08/14/19 Fexofenadine HCl [Rosa Allergy] 180 mg DAILY 03/23/18 08/14/19 LORazepam [Ativan] 0.5 mg PO Q6H PRN 03/23/18 08/14/19 guaiFENesin/DEXTROMETHORPHAN 10 ml PO Q6H PRN #120 ml 03/23/18 08/14/19 [Robitussin Dm] Losartan [Cozaar] 50 mg PO DAILY 04/20/19 08/14/19 Ascorbic Acid [Vitamin C] 1,000 mg PO DAILY 06/05/19 08/14/19 Aspirin [Aspirin EC] 1 tab PO DAILY 06/05/19 08/14/19 Azelaic Acid [Finacea] 1 applic TD BID PRN 06/05/19 08/14/19 Calcium Citrate/Vitamin D3 1 tab PO DAILY 06/05/19 08/14/19 [Citracal-Vit D3 200 mg-250 Tab] Cyanocobalamin (Vitamin B-12) 1,000 mcg PO DAILY 06/05/19 08/14/19 [B-12] Ell[place] 1 tab PO DAILY 06/05/19 08/14/19 Lactobacillus Rhamnosus GG 1 cap PO DAILY 06/05/19 08/14/19 [Culturelle] hydroCHLOROthiazide 25 mg PO DAILY 06/05/19 08/14/19 [Hydrochlorothiazide] Ondansetron [Ondansetron Odt] 8 mg PO Q8HR PRN 07/04/19 08/14/19 Potassium Chloride [Micro-K] 20 meq PO DAILY 07/12/19 08/14/19 - Allergies Allergies/Adverse Reactions: Allergies Allergy/AdvReac Type Severity Reaction Status Date / Time Sulfa (Sulfonamide AdvReac Emesis Verified 08/14/19 11:06 Antibiotics) Review of Systems - Constitutional Constitutional: reports: Fatigue, Poor appetite, Weight loss. denies: Fever, Chills - Eyes Eyes: reports: Vision loss, Corrective lenses - Ears, Nose & Throat Ears, Nose & Throat: reports: Hearing loss (mild). denies: Mouth lesions - Cardiovascular Cardiovascular: reports: Decr. exercise tolerance. denies: Chest pain - Respiratory Respiratory: reports: SOB with exertion. denies: SOB at rest - Gastrointestinal Gastrointestinal: reports: Nausea, Bloating, Poor appetite, Early satiety, Other (gas pains) - Genitourinary Genitourinary: reports: Frequency - Musculoskeletal Musculoskeletal: reports: Muscle weakness - Integumentary Integumentary: reports: Dryness - Neurological Neurological: reports: General weakness - Psychiatric Psychiatric: reports: Depression, Anxiety - Hematologic/Lymphatic Hematologic/Lymphatic: reports: Anemia. denies: Recurrent infections - All Other Systems All Other Systems: reports: Reviewed and negative Physical Exam - Vital Signs Temperature: 36.4 C Pulse Rate: 65 Respiratory Rate: 18 Blood Pressure: 118/53 - Physical Exam General Appearance: positive: Mild distress, Anxious Eyes Bilateral: positive: Normal inspection ENT: negative: Oral lesions Neck: positive: No JVD, Trachea midline Cardiovascular: positive: Regular rate & rhythm Respiratory: positive: No respiratory distress Abdomen: positive: Soft, Tenderness, Distended Skin: positive: Pallor, Dryness (hands) Extremities: positive: No pedal edema, Other (mild balance/numbness issues LE) Neurologic/Psychiatric: positive: Oriented x3, Weakness, Depressed mood/affect Palliative Care - POLST Patient has POLST: No POLST Status: Full Code Pain: Location (pain intermittent LUQ; sometimes worse with eating; no identifiable pattern; new pain of right thigh/let sciatica intermittent-has had in past) Tiredness/Fatigue: Severe (7-10) Drowsiness/Sedation: Moderate (4-6) Nausea: Mild (1-3) Depression: Mild (1-3) Anxiety: Moderate (4-6) Dyspnea: Mild (1-3) Anorexia: Mild (1-3) Sleep: Variable sleep pattern Constipation: Yes, Managed Feelings of wellbeing/Perceived Quality of Life: Fair, Worsening Performance Status: Patient at baseline is a very active person, has found the fatigue and activity intolerance quite distressing. She is able to manage her own ADLs, she is able to ambulate around the home. She does get quite tired if she overdoes, this is quite frustrating for her. - Palliative Care Discussion: Sadie does continue to have more good days than bad days, but is feeling somewhat overwhelmed that she is recognizing the seriousness of her illness. When discussion included what would be a threshold for no longer continuing treatment, she reports she is "a fighter", but it would be if she were totally dependent or unable to take care of herself anymore. She is hoping for the best, is willing to continue with the treatment, but does admit to severe anxiety, currently exacerbated and ongoing struggles with depression.lorenzo continues to experience high symptom burden, particularly around fatigue and activity intolerance. She finds this quite impactful on her quality of life, she though does admit that mentally she is more exhausted. Did explore some of her healthcare beliefs, how her background of family of origin and catholism is impacting her current view and coping of her current situation. When asked if she would want more information about her prognosis, for future decision making, regarding advanced directives. She would like to finish her radiation first, and then revisit this as she thinks it would be helpful in the future as she does have some things on her "bucket list" of travel. She would like to incorporate those into her next treatment planning phase. Results - Lab Results Lab results reviewed: Yes Impression and Recommendations - Palliative Care Impression: This is a anxious and rashi 79-year-old woman who has relapsed gallbladder cancer, with poor tolerance of her last chemotherapy regimen. She is about to embark on radiation/chemotherapy, and presents with high anxiety and moderate symptom burden. Palliative care to continue to provide support for pain and symptom management, anticipatory guidance, and advanced care planning. Recommendations/Counseling Done: 1. Fatigue. This is multifactorial in origin, currently receiving 1 unit of packed red blood cells. Her THS was normal, she does have a history of hypothyroidism. Counseling provided regarding pacing activities, patient does tend to overdo, strategies reviewed to better able manage. Counseling provided also in the context of impending chemoradiation, will most likely worsen, and needs for frequent rest periods balanced with activity. 2. Anxiety. Patient does present with significant history of anxiety, continues to fluctuate and often interferes in her quality of life. Patient may benefit from addition of anaphylaxis seen, but is hesitant to add more medications. Counseling provided again regarding cognitive approaches for addressing coping, and ways to support her emotional well-being. She has been referred to the palliative care stencil cutter machine. 3. Relapsed gallbladder. Patient would like information on prognostication, she does understand the seriousness of her illness, and does have some planning in the future. She would like to wait though on this information until after she is completed her chemoradiation.Patient is at high risk for exacerbation of her symptoms particular around nausea, fatigue, and anxiety with her pending treatment plan. Encouraged to reach out to palliative care if need help for titrating or dressing symptoms. Addressed questions and follow-up regarding her Xeloda, management of nausea, and nutritional needs. 4. Acute on chronic pain. Patient reports left upper quadrant pain managed with intermittent acetaminophen, may be using once every other day. She does have increased right sciatica pain, and discussion does appear its more related to her history of sciatica and sedentary lifestyle currently. She does have past exercises she is used, encouraged to resume those along with her stretching exercises. She will notify me if it worsens. 5. Advanced care planning. Patient's not available, they have not completed appropriate documents yet, patient though would like to wait for further future decisions regarding goals of care after is finished chemo radiation, at that point time would like more information on her prognosis. Counseling provided regarding patient's questions and in anticipatory guidance Time Spent: 60 minutes with greater than 50% of this done in counseling regarding pain and symptom management pending treatment, goals of care, and anticipatory guidance.
== END 2019-08-16 10:09 | disposition home or self-care (01) ==
LOC: PC 10:08
PROVIDERS: ATTEND Nurse Practitioner Adult Health
DX: Z51.5 Encounter for palliative care (principal); R53.83 Other fatigue; F41.9 Anxiety disorder, unspecified; G89.3 Neoplasm related pain (acute) (chronic); C23 Malignant neoplasm of gallbladder; M54.31 Sciatica, right side; Z79.899 Other long term (current) drug therapy
CPT/HCPCS: 99215

== ENCOUNTER 2019-10-02 15:24 | Outpatient (CLI) | payer MEDICARE, OTHER ==
--- NOTE | 2019-10-02 17:22 | CONSULTATION NOTE ---
Palliative Care Follow Up - Referral Referring Provider: Dr. Clovis Marie Time of Visit: [id number] Referral setting: [facility] [place]erral Reason: Anxiety/Acute on chronic pain/Relapsed Gallbladder CA - Information Sources Records reviewed: Previous records reviewed History/Review of Systems obtained from: Patient Exam limitations: No limitations - History of Present Illness Update Brief HPI Update: This is a 79-year-old woman with relapsed gallbladder cancer, diagnosed in 09/2018. She had done poorly on cis-nulato/gemcitabine, and started about 3- 1/2 weeks ago palliative radiation with concurrent low-dose Xeloda since 09/04/2019. She is meeting with palliative care today to review her symptom burden, and address quality of life issues. Patient presents today with persistent right sciatica, this is been worsened with her prolonged driving and up and down off the table. She has gagging reflex with pills, is reticent to add any more medication, though we did discuss initiating at least acetaminophen, does come in adult liquid Tylenol dosing. Her pain is about a 5-6 over 10. It does fluctuate, worsens with activity and sitting. Her left-sided persistent abdominal pain has actually improved, she still has some intermittent "traveling pain from right to left". Though it is not as persistent as it is. She has a feeling of a pulling sensation, this is much improved from her baseline. She is hopeful this means that her tumor is shrinking. She did need to receive fluids last week, she is working hard to manage her fluid status. She does take sips frequently, though does admit to probably less than 30 ounces in 24 hours. She has not had any diarrhea nor constipation, and is using MiraLAX every other day. She is feeling less anxious, feels overall she is confident in her team, she does understand her treatment is palliative in nature. Though she does discuss her plans more in years versus months. She has cut down her smoking, continues with some postnasal drip and phlegm. Patient's past medical history includes original gallbladder diagnosed at stage II 05/2016, status post partial hepatectomy Ellen erick dissection. She has underlying COPD, hypothyroidism, diverticulitis, depression/anxiety, osteoarthritis, carpal tunnel syndrome, cataracts, past coronary artery disease with a coronary stent and IA. Social History - Living Situation Living arrangement: At home Living Situation: With spouse/s.o. Support System: Patient lives with her , they do have a home in [place] as well. He is leaving in a little bit to go back down there and spend time with his family. Her son John will be coming up and providing support for her. They had been splitting their time between the 2, but [place]. She does have good friends and support, as well as a spiritual community.Her has been for 18 years, they have accommodation of 10 children between the 2 of them and multiple gran dchildren and great-grandchildren. Medications/Allergies - Medications Home Medications: Ambulatory Orders Medication Instructions Recorded Confirmed Atorvastatin Calcium 40 mg PO DAILY 03/23/18 10/02/19 Estradiol 0.5 mg PO DAILY 03/23/18 10/02/19 Famotidine 40 mg PO BID 03/23/18 10/02/19 Fexofenadine HCl [Rosa Allergy] 180 mg DAILY 03/23/18 10/02/19 LORazepam [Ativan] 0.5 mg PO Q6H PRN 03/23/18 10/02/19 guaiFENesin/DEXTROMETHORPHAN 10 ml PO Q6H PRN #120 ml 03/23/18 10/02/19 [Robitussin Dm] Losartan [Cozaar] 50 mg PO DAILY 04/20/19 10/02/19 Ascorbic Acid [Vitamin C] 1,000 mg PO DAILY 06/05/19 10/02/19 Aspirin [Aspirin EC] 1 tab PO DAILY 06/05/19 10/02/19 Azelaic Acid [Finacea] 1 applic TD BID PRN 06/05/19 10/02/19 Calcium Citrate/Vitamin D3 1 tab PO DAILY 06/05/19 10/02/19 [Citracal-Vit D3 200 mg-250 Tab] Cyanocobalamin (Vitamin B-12) 1,000 mcg PO DAILY 06/05/19 10/02/19 [B-12] Ellura 1 tab PO DAILY 06/05/19 10/02/19 Lactobacillus Rhamnosus GG 1 cap PO DAILY 06/05/19 10/02/19 [Culturelle] hydroCHLOROthiazide 25 mg PO DAILY 06/05/19 10/02/19 [Hydrochlorothiazide] Ondansetron [Ondansetron Odt] 8 mg PO Q8HR PRN 07/04/19 10/02/19 Potassium Chloride [Micro-K] 20 meq PO DAILY 07/12/19 10/02/19 Acetaminophen [8Hr Arthritis Pain] 650 mg PO TID 10/02/19 10/02/19 Fluticasone [Flonase] 1 spray MAURICE BID 10/02/19 10/02/19 - Allergies Allergies/Adverse Reactions: Allergies Allergy/AdvReac Type Severity Reaction Status Date / Time Sulfa (Sulfonamide AdvReac Emesis Verified 09/18/19 14:36 Antibiotics) Review of Systems - Constitutional Constitutional: reports: Fatigue (worsens through the day with treatment), Weakness, Poor appetite, Weight stable. denies: Fever, Chills - Eyes Eyes: reports: Blurred vision (reports would like to have cataract surgery previously scheduled before reccurence; right side like a fog; difficulty driving at night), Vision loss - Ears, Nose & Throat Ears, Nose & Throat: reports: Postnasal drainage, Other (tenderness no mucositis) - Cardiovascular Cardiovascular: reports: Lightheadedness (in am when getting up), Decr. exercise tolerance. denies: Chest pain, Edema - Respiratory Respiratory: reports: Cough, SOB with exertion. denies: SOB at rest - Gastrointestinal Gastrointestinal: reports: Abdominal pain (improved), Nausea (using BID ondansetron prior to xeloda; vague intermittent nausea but manageable), Poor appetite, Early satiety. denies: Constipation, Diarrhea, Reflux/heartburn - Genitourinary Genitourinary: reports: Frequency. denies: Incontinence - Musculoskeletal Musculoskeletal: reports: Stiffness, Muscle weakness, Other (gait unsteady; uses cane at baseline) - Integumentary Integumentary: reports: Dryness, Other (small skin lesion left hand dried itchy not red) - Neurological Neurological: reports: General weakness, Memory problems (mild) - Psychiatric Psychiatric: reports: Depression (mild), Anxiety (improved; baseline most of her life) - Endocrine Endocrine: reports: Intolerance to cold - Hematologic/Lymphatic Hematologic/Lymphatic: reports: Anemia. denies: Recurrent infections - All Other Systems All Other Systems: reports: Reviewed and negative Physical Exam - Vital Signs Pulse Rate: 76 (sitting 76 standing) Respiratory Rate: 18 Blood Pressure: 120/63 (sitting 106/62 standing) - Physical Exam General Appearance: positive: No acute distress, Alert Eyes Bilateral: positive: Normal inspection ENT: positive: No signs of dehydration. negative: Pharyngeal erythema, Oral lesions Neck: positive: No JVD, Trachea midline Cardiovascular: positive: Regular rate & rhythm Respiratory: positive: No respiratory distress, Diminished throughout. negative: Wheezes, Rales, Rhonchi Abdomen: positive: Soft, Nml bowel sounds, Tenderness Skin: positive: Pallor, Dryness, Other (hands with peeling; cracks no open areas; using acquaphor) Extremities: positive: No pedal edema Neurologic/Psychiatric: positive: Oriented x3, Mood/affect nml, Weakness Palliative Care - POLST Patient has POLST: No POLST Status: Full Code Pain: Pain worsening (right sciatica pain see HPI), Pain improved (abdominal pain) Tiredness/Fatigue: Severe (7-10) Drowsiness/Sedation: Mild (1-3) Nausea: Mild (1-3) Anorexia: Moderate (4-6) Dyspnea: Moderate (4-6) Depression: Moderate (4-6) Anxiety: Moderate (4-6) Feelings of wellbeing/Perceived Quality of Life: Good, Acceptable, Improved Sleep: Variable sleep pattern Constipation: Yes, Managed Performance Status: Patient is ambulatory, does use cane as her gait is somewhat unsteady. She is having some increased lower extremity weakness, but still able to manage her ADLs as long as she paces herself. She has been traveling daily for radiation, this is quite tiring for her she does fade by the end of the day. I would put her at a PPS of 70% - Palliative Care Discussion: Patient is hoping for the best, with treatment a prolonged quantity as well as quality of life. She is hoping to travel this summer to [place], and has other things that she has on her bucket list which do include travel plans. She also is curious about getting cataracts done, unclear if there is been conversation other than its palliative treatment around her prognosis. She does understand she has "a rare cancer", she feels like she has good family support, and sanchez by a processing information and having a clear understanding of what to expect.Short-term goals are to finish radiation/Xeloda, she does understand will be restaging scan and then weighing benefits and burdens of the next steps. Results - Lab Results Lab results reviewed: Yes Impression and Recommendations - Palliative Care Impression: This is a rashi 79-year-old woman with relapsed gallbladder cancer, currently receiving external radiation and Xeloda. She is actually tolerating it fairly well, with minimal symptom burden other than fatigue. She does have pain secondary to sciatica, some shortness of breath, she is less anxious today, but is at high risk for dehydration. Palliative care providing support regarding quality of life issues as well as anticipatory guidance. Recommendations/Counseling Done: 1. Right sciatica pain. She has had this fluctuated over the last year, more acutely over the last few months. It has been exacerbated with her recent car trips and radiation, instructed to trial acetaminophen 650 mg 3 times daily, patient does not want to initiate opioids so we did discuss the role in the case of acute uncontrolled pain. She does use some lorazepam with some relief of muscle spasms, we also discussed perhaps adding gabapentin if acetaminophen not effective. 2. Right hand lesion. Does not appear red or irritated, though it is itchy, instructed to try hydrocortisone cream twice daily to see if it improves. She has had lesions prior burned off, instructed to follow-up with her PCP after done with treatment. 3. Allergic rhinitis. Patient is having some postnasal drip, causing increased cough and irritation. Suspect also exacerbated by patient needing lay flat on the radiation table. She will initiate she has been on it before and effective Flonase 1 inhalation twice daily. Counseling provided regarding proper use and sustained use not intermittent. 4. Anorexia. Patient continues with taste changes, counseling provided regarding strategies to manage both her treatment, taste changes, early satiety. 5. Dehydration. Patient has some orthostatic drop, though is not significantly symptomatic today. We did discuss in weighing benefits and burdens is better to rehydrate orally versus IV. She will call though if she feels like she is gotten behind and needs further hydration support. Counseling provided regarding strategies to improve intake, she is also been instructed to hold her hydrochlorothiazide for blood pressure less than 110/60. 6. Dysphagia. Patient is having some trouble with swallowing pills, instruction given to take her pills with nectar, instructed to stop using orange juice also related to her underlying nausea. Patient verbalized understanding. All instructions given they were written out. 7. Advanced care planning. Initiated conversation regarding goals of care, hoping for the best, but also being prepared and having conversations about "the worst". Encouraged to front load her trips as would expect over time even with treatment breaks, these are important goals for her, she more likely would be able to tolerate it now versus later. She is curious about cataract surgery and timing of oral/teeth cleaning. Did reach out to Dr. Marie regarding his thoughts given her treatment regimen and follow-up on prognosis. Time Spent: 60 minutes with greater than 50% of this done in counseling regarding goals of care, management of symptoms, coordination of care with oncology, and anticipatory guidance.
== END 2019-10-02 15:25 | disposition home or self-care (01) ==
LOC: PC 15:24
PROVIDERS: ATTEND Nurse Practitioner Adult Health
DX: Z51.5 Encounter for palliative care (principal); M54.31 Sciatica, right side; L98.9 Disorder of the skin and subcutaneous tissue, unspecified; J30.9 Allergic rhinitis, unspecified; R63.0 Anorexia; R43.9 Unspecified disturbances of smell and taste; E86.0 Dehydration; R53.83 Other fatigue; R13.10 Dysphagia, unspecified; C23 Malignant neoplasm of gallbladder; G89.3 Neoplasm related pain (acute) (chronic); Z79.899 Other long term (current) drug therapy
CPT/HCPCS: 99215

== ENCOUNTER 2019-11-13 11:08 | Outpatient (CLI) | payer MEDICARE, OTHER ==
[2019-11-13] MEDS ORDERED: IOVERSOL 320 100 ML VIAL IVP ONE ×2 (11:12→12:58)
[2019-11-13] MEDS ORDERED: IOVERSOL 320 50 ML VIAL ONE (11:12)
[2019-11-13] MEDS ORDERED: SODIUM CHLORIDE FLUSH 0.9% 10 ML SYRINGE ONE (11:36)
[2019-11-13] MEDS ORDERED: IOVERSOL 320 50 ML VIAL PO ONE (12:58)
--- NOTE | 2019-11-14 15:07 | CT Report ---
Reason: GALLBLADDER CA Procedure Date: 11/13/2019 Accession Number: [id number] / [id number] Procedure: CT - CHEST W CPT Code: Final Report FULL RESULT: EXAM: CT CHEST EXAM DATE: 11/13/2019 12:52 PM. CLINICAL HISTORY: Gallbladder cancer. COMPARISONS: CT 07/19/2018. TECHNIQUE: Routine helical CT imaging was performed through the chest. IV contrast: 90 cc of Optiray 320. Reconstructions: Coronal and sagittal. In accordance with CT protocol optimization, one or more of the following dose reduction techniques were utilized for this exam: automated exposure control, adjustment of mA and/or KV based on patient size, or use of iterative reconstructive technique. FINDINGS: Lungs/Pleura: Minimal mid and lower lung scar/atelectasis. No consolidation. No parenchymal lesions are identified. No pleural effusions. No pneumothorax. Mediastinum: Heart size is normal. Coronary artery calcified plaque. Trace pericardial effusion. Small hiatal hernia. No enlarged inferior cervical, mediastinal, hilar or axillary lymph nodes. The largest lymph nodes are superior right paratracheal measuring 5 mm, smaller compared to the prior study, as well as a slightly more anterior and cephalad pretracheal lymph node measuring 3 mm, also smaller. No new adenopathy. Right IJ Port-A-Cath is present with the tip in the right atrium. Bones: Degenerative changes are seen in the thoracic spine. No osseous lesions. No acute osseous abnormalities. Visualized Abdomen: Postsurgical changes from cholecystectomy partly included. Included portions of the liver, spleen, adrenals, pancreas and kidneys are unremarkable as well as the stomach and upper abdominal bowel. Ventral fatty hernia again seen anterior to the left lobe of the liver. Other: No subcutaneous or intramuscular abnormalities are identified. IMPRESSION: 1. New right IJ Port-A-Cath with the tip in the right atrium. 2. Slight decrease in size of right paratracheal and precarinal lymph nodes compared to 07/19/2018. No new mediastinal, hilar or axillary lymphadenopathy. 3. No parenchymal lung lesions. RADIA
--- NOTE | 2019-11-14 15:09 | CT Report ---
Reason: GALLBLADDER CA Procedure Date: 11/13/2019 Accession Number: [id number] / [id number] Procedure: CT - Abdomen/Pelvis W CPT Code: Final Report FULL RESULT: EXAM: CT ABDOMEN AND PELVIS EXAM DATE: 11/13/2019 12:52 PM. CLINICAL HISTORY: Gallbladder carcinoma. COMPARISONS: ABDOMEN/PELVIS W/ 06/16/2019 12:46 PM. TECHNIQUE: Routine helical CT imaging was performed through the abdomen and pelvis. IV contrast: OPTI 320 90ML. Enteric contrast: Positive. Reconstructions: Coronal and sagittal. In accordance with CT protocol optimization, one or more of the following dose reduction techniques were utilized for this exam: automated exposure control, adjustment of mA and/or KV based on patient size, or use of iterative reconstructive technique. FINDINGS: Lung Bases: Minimal bibasilar scar/atelectasis. Heart size is normal. Coronary artery calcified plaque. Small hiatal hernia. Liver: Segment 4B low-attenuation 5 mm lesion, stable, also more inferiorly measuring 9 mm low-attenuation lesion with minimal interval change. Low-attenuation area seen in the liver measuring approximately 4 x 2.5 cm at the site of resection is unchanged. Adjacent surgical clips noted. No areas of increased vascularity noted. Patent portal vein. Gallbladder/Bile Ducts: Status post cholecystectomy. Multiple clips seen in the gallbladder fossa. Minimal stranding seen along the site of resection although appearance is unchanged seen best on image 30, series 3. Spleen: Normal. Pancreas: Pancreatic parenchymal volume loss. No peripancreatic edema or pancreatic ductal dilatation. Adrenal Glands: Normal. Kidneys: Kidneys enhance symmetrically. No hydronephrosis. Lower pole left renal low-attenuation lesion measuring 5 mm, too small to characterize. No other renal masses. Peritoneal Cavity/Bowel: Ventral fatty midline hernia seen anterior to the left lobe of the liver again seen. Stomach is moderately distended with air/gas. No small bowel wall thickening or small bowel obstruction. No omental nodules, masses or mesenteric nodules are definitively identified. Small to moderate volume of stool in the colon. Diverticula are seen in the sigmoid colon. No diverticulitis. No free air. No free fluid. Appendix is not visualized. Pelvic Organs: Urinary bladder is mildly distended and unremarkable. Vaginal ring is noted. There is some prolapse of the perirectal fat particularly on the left as before. No pelvic adenopathy. No pelvic free fluid. Uterus is absent. Vasculature: Vascular calcifications. No aneurysm. Mesenteric vasculature is patent. Bones: Degenerative change of the lower thoracic and lumbar spine greatest at L1-L2. Grade 1 anterolisthesis of L4 on L5, as before. There is lumbar facet arthropathy. Levoscoliosis of the mid-upper lumbar spine. No osseous lesions. Degenerative changes of both hip joints. Other: None. IMPRESSION: 1. Postsurgical changes status post cholecystectomy. Low-attenuation area along the gallbladder fossa and liver at the site of resection measuring 4 cm is unchanged. Minimal adjacent stranding and thickening is stable. No new nodules or masses are noted in particular at the site of resection. 2. No abdominal or pelvic adenopathy. 3. Hepatic low-attenuation lesions without significant change. No new hepatic lesions are identified. 4. No osseous lesions. RADIA
== END 2019-11-13 11:09 | disposition home or self-care (01) ==
LOC: DI 11:08
PROVIDERS: ATTEND Internal Medicine Hematology & Oncology
DX: C23 Malignant neoplasm of gallbladder (principal); K76.9 Liver disease, unspecified; Z90.49 Acquired absence of other specified parts of digestive tract
CPT/HCPCS: 36415; 71260; 74177; 80053; 85027; 86301

== ENCOUNTER 2019-11-23 15:23 | Outpatient (CLI) | payer MEDICARE, OTHER ==
--- NOTE | 2019-11-23 17:19 | CONSULTATION NOTE ---
Palliative Care Follow Up - Referral Referring Provider: Dr. Clovis Marie Time of Visit: [id number] Referral setting: Home Referral Reason: Anxiety/Gallbladder CA - Information Sources Records reviewed: Previous records reviewed History/Review of Systems obtained from: Patient Exam limitations: No limitations - History of Present Illness Update Brief HPI Update: This is a rashi 79-year-old woman who was initially diagnosed with gallbladder stage II in 05/2016 in [place], and had a resection followed by adjuvant gemcitabine in 03/2017. She presented with relapsed gallbladder cancer since 09/2018, has had recurrent therapy which she completed 12/2018 only with partial response, and most recently completed concurrent radiation/Xeloda from 08/2019 until 08/12/2019. She is currently on observation, just completed her scans, for recent staging, for which her CT scan showed of her chest slight decrease in the size of the right paratracheal and precarinal lymph nodes compared to 07/19/2018 and no new adenopathy, as well as her site at the resection measuring 4 cm is unchanged, and appears stable with no new nodules or masses, and her hepatic low-attenuation lesions without significant change nor new hepatic lesions or osseous lesions identified. She is quite pleased to hear these results, she does meet with Dr. Gonzalez later in the month, and he will review their next steps. She continues to recover from her radiation, still with fluctuating fatigue, nausea is improving, as well as her appetite and i mprovement with her taste changes. Patient has remained fairly weight neutral, she does have intermittent right sciatica pain, this fluctuates comes and goes. She reports she is breathing better, has cut back on her smoking, denies any dizziness. She continues with persistent intermittent left sided upper abdominal pain that radiates across abdomen to right, But is not painful enough to need medications. This is often worsened when she wakes in the morning, and does attribute this some to her sleeping position. She is having some persistent neuropathies, she does feel like these have worsened particularly with the cold weather but are tolerable. She continues with intermittent anxiety, but uses her marina to cope, as well as is pleased to hear her recent outcome of her scans. Past medical history includes COPD, hypothyroidism, diverticulitis, depression/anxiety, osteoarthritis, carpal tunnel syndrome, cataracts with pending surgery, past coronary artery disease with coronary stent and ME Social History - Living Situation Living arrangement: At home Living Situation: With spouse/s.o. Support System: Patient and her have both a home here on the [place] as well as [place]. He is currently down there taking care of his own health issues, and spending time with his family. They are a blended family. She has good friends and support, her son does come and provide support when she cannot be alone, her and she had been for 18 years. Medications/Allergies - Medications Home Medications: Ambulatory Orders Medication Instructions Recorded Confirmed Atorvastatin Calcium 40 mg PO DAILY 03/23/18 11/24/19 Famotidine 40 mg PO BID 03/23/18 11/24/19 Fexofenadine HCl [Rosa Allergy] 180 mg DAILY 03/23/18 10/09/19 LORazepam [Ativan] 0.5 mg PO Q6H PRN 03/23/18 11/24/19 estradioL [Estradiol] 0.5 mg PO DAILY 03/23/18 11/24/19 guaiFENesin/DEXTROMETHORPHAN 10 ml PO Q6H PRN #120 ml 03/23/18 11/24/19 [Robitussin Dm] Losartan [Cozaar] 25 mg PO DAILY 04/20/19 11/24/19 Ascorbic Acid [Vitamin C] 1,000 mg PO DAILY 06/05/19 11/24/19 Aspirin [Aspirin EC] 1 tab PO DAILY 06/05/19 11/24/19 Azelaic Acid [Finacea] 1 applic TD BID PRN 06/05/19 11/24/19 Calcium Citrate/Vitamin D3 1 tab PO DAILY 06/05/19 11/24/19 [Citracal-Vit D3 200 mg-250 Tab] Cyanocobalamin (Vitamin B-12) 1,000 mcg PO DAILY 06/05/19 11/24/19 [B-12] Ellura 1 tab PO DAILY 06/05/19 11/24/19 Lactobacillus Rhamnosus GG 1 cap PO DAILY 06/05/19 11/24/19 [Culturelle] Ondansetron [Ondansetron Odt] 8 mg PO Q8HR PRN 07/04/19 11/24/19 Acetaminophen [8Hr Arthritis Pain] 650 mg PO TID 10/02/19 11/24/19 - Allergies Allergies/Adverse Reactions: Allergies Allergy/AdvReac Type Severity Reaction Status Date / Time Sulfa (Sulfonamide AdvReac Emesis Verified 10/09/19 14:52 Antibiotics) Review of Systems - Constitutional Constitutional: reports: Fatigue (still fluctuating but improving), Weight stable. denies: Fever, Chills, Night sweats - Eyes Eyes: reports: Blurred vision (has cataracts; will be having surgery looking forward to improved vision), Vision loss - Ears, Nose & Throat Ears, Nose & Throat: reports: Postnasal drainage (flonase did not improve), Other (was able to get teeth cleaned; relieved and feeling better) - Cardiovascular Cardiovascular: reports: Lightheadedness (occasional; on getting up from bed), Decr. exercise tolerance (improving;). denies: Chest pain, Edema - Respiratory Respiratory: reports: Cough (less with decreased smoking; reports less than pack a week now), SOB with exertion. denies: Wheezing, SOB at rest - Gastrointestinal Gastrointestinal: reports: Constipation (intermittent), Nausea (improved off radiation; still taking ondansetron BID), Bloating, Early satiety, Other (using Ensure once daily; working on increasing her intake of food) - Genitourinary Genitourinary: reports: Frequency, Incontinence (intermittent) - Musculoskeletal Musculoskeletal: reports: Stiffness, Muscle weakness - Integumentary Integumentary: reports: Dryness - Neurological Neurological: reports: General weakness - Psychiatric Psychiatric: reports: Depression, Anxiety - Hematologic/Lymphatic Hematologic/Lymphatic: reports: Anemia (hgb 9.6). denies: Recurrent infections - All Other Systems All Other Systems: reports: Reviewed and negative Physical Exam - Vital Signs Temperature: 97.2 C Pulse Rate: 68 Respiratory Rate: 18 O2 Saturation: 98 (ra @ rest) Blood Pressure: 138/68 - Physical Exam General Appearance: positive: No acute distress, Alert Eyes Bilateral: positive: Normal inspection ENT: positive: No signs of dehydration Neck: positive: Trachea midline Cardiovascular: positive: Regular rate & rhythm Respiratory: positive: No respiratory distress, Breath sounds nml, Diminished in bases Abdomen: positive: Soft, Nml bowel sounds, Tenderness (LUQ). negative: Mass Skin: positive: Pallor, Dryness Extremities: positive: No pedal edema Neurologic/Psychiatric: positive: Oriented x3, Mood/affect nml Palliative Care - POLST Patient has POLST: No Pain: Pain unchanged, Location (Pain starts left upper quadrant; radiates across abdomen to right; intermittent and fluctuating; worse in the morning when she gets up; rarely uses APAP for it) Tiredness/Fatigue: Moderate (4-6) (fluctuates; limits activity during day) Drowsiness/Sedation: Mild (1-3) Nausea: Mild (1-3) (resolving as moving further from radiation) Anorexia: Moderate (4-6) Dyspnea: Mild (1-3) Depression: Mild (1-3) Anxiety: Moderate (4-6) (relieved to hear about scans; had been anxious) Feelings of wellbeing/Perceived Quality of Life: Good, Acceptable, Improved Sleep: Sleeps well Constipation: Managed, Intermittent constipation Performance Status: Patient energy is improving slowly, it does fluctuate. She has good days and bad days, she is able to attend her ADLs. She is driving again, though this is limited secondary to her cataracts which she is having out soon. - Palliative Care Discussion: Patient does understand the seriousness of her illness, she does understand from oncology her prognosis is 6 to 9 months. This is helping her plan as far spacing her priorities. She does feel like she and her have got most of her legal issues resolved, have started some planning. We did discuss D CAT today, 's health is also tenuous at times. She would have her son as her second choice. Form was provided and instructions given. She would like at end-of-life, to be at home with hospice, she is familiar with this from other family members. She is hopeful to be able to do a few trips in the meantime, counseling provided regarding reframing some of these further more manageable, to be able to accomplish. She does feel like she has done well in her life, she has a strong marina, and continues to use this to drop on for coping. She is quite relieved her disease is not progressed according to the scans. She does make with oncology later this week, she is quite thankful for her care team up here. She does want return to [place] and is looking at timing regarding this. Results - Lab Results Lab results reviewed: Yes Impression and Recommendations - Palliative Care Impression: This is a rashi 79-year-old woman with relapsed gallbladder cancer, currently having completed external radiation and Xeloda. She is on surveillance currently, has just finished restaging scans without any progression of disease. She is recovering from her radiation, continues with fluctuating fatigue and intermittent nausea but overall continues to improve daily. Palliative care providing support regarding quality of life issues as well as anticipatory dhaval campuzano Recommendations/Counseling Done: 1. Nausea. This is continue to improve after finishing radiation. Given the side effects ondansetron, encouraged to stop scheduled twice daily dosing. She has been having some headaches, encouraged to use only as needed. Patient acknowledged understanding. 2. Generalized weakness. Patient does understand the fluctuating nature, of both her disease and coming off treatment. Counseling provided regarding progressive ambulation, increasing activity as tolerated, and strategies to integrate this into her routine. 3. Anxiety. Patient does perceive herself as an anxious person, but sanchez well with information. She is dried up on her marina, she does have friends she feels she can talk with, has been difficult with her back and forth to [place]. She feels well supported by her family, counseling provided regarding CBT techniques to manage. 4. Depression. Counseling provided regarding normalizing grief and loss feelings, patient does perceive she has intermittent depressive feelings does not feel persistent depressive symptoms. Patient quite resistant to medications, did discuss using light therapy, instructions and counseling provided regarding how to integrate as a tool if chose. 5. Advanced care planning. Patient continues to work towards completing her documents, as well as her plans regarding her end-of-life wishes. Did provide and instructed on D POA and recommendation to have at least 2 listed. Counseling provided regarding end-of-life planning. Did not introduce the POLST at this point in time, as patient does have high anxiety will continue to pace these conversations. Time Spent: See minutes with greater than 50% of this done in counseling regarding goals of care, pain and symptom management, and anticipatory guidance
== END 2019-11-23 15:24 | disposition home or self-care (01) ==
LOC: PC 15:23
PROVIDERS: ATTEND Nurse Practitioner Adult Health
DX: Z51.5 Encounter for palliative care (principal); R11.0 Nausea; R53.83 Other fatigue; R53.1 Weakness; F41.9 Anxiety disorder, unspecified; F32.9 Major depressive disorder, single episode, unspecified; F17.210 Nicotine dependence, cigarettes, uncomplicated; C23 Malignant neoplasm of gallbladder; Z79.899 Other long term (current) drug therapy; Z92.21 Personal history of antineoplastic chemotherapy; Z92.3 Personal history of irradiation
CPT/HCPCS: 99350

== ENCOUNTER 2019-12-21 07:59 | Day surgery (SDC) | payer MEDICARE, OTHER ==
[~2019-12-21 07:59] MED LIST: CYCLOPENTOLATE 1% OPHTH DROPS 2 ML ONE; KETOROLAC 0.45% OPHTH DROPS ONE; PHENYLEPHRINE 2.5% OPHTH 2 ML DROPS ONE; PROPARACAINE 0.5% OPHTH DROPS 15 ML ONE
[2019-12-21] MEDS ORDERED: LACTATED RINGERS 1,000 ML IV ONE (08:06)
[2019-12-21] MEDS ORDERED: LACTATED RINGERS 500 ML IV ONE (08:06)
[2019-12-21] MEDS ORDERED: CYCLOPENTOLATE 1% OPHTH DROPS 2 ML RIGHTEYE ONE (08:20)
[2019-12-21] MEDS ORDERED: PROPARACAINE 0.5% OPHTH DROPS 15 ML RIGHTEYE ONE ×2 (08:20→09:33)
[2019-12-21] MEDS ORDERED: PHENYLEPHRINE 2.5% OPHTH 2 ML DROPS RIGHTEYE ONE (08:20)
[2019-12-21] MEDS ORDERED: KETOROLAC 0.45% OPHTH DROPS RIGHTEYE ONE (08:20)
--- NOTE | 2019-12-21 08:48 | ANESTHESIA ---
Pre-Anesthesia VS, & Labs - Diagnosis R senile combined cataract - Procedure R cataract extraction w/IOL Vital Signs: Temp Pulse Resp BP Pulse Ox 36.4 C L 71 12 114/77 100 12/21/19 08:06 12/21/19 08:06 12/21/19 08:06 12/21/19 08:06 12/21/19 08:06 Height 5 ft 2 in Weight (kg) 64.2 kg Body Mass Index 26.1 - NPO Last Fluid Intake: 614 - Is Patient ?: No Home Medications and Allergies Atorvastatin Calcium 40 mg PO DAILY 03/23/18 Famotidine 40 mg PO BID 03/23/18 Fexofenadine HCl [Rosa Allergy] 180 mg DAILY 03/23/18 LORazepam [Ativan] 0.5 mg PO Q6H PRN 03/23/18 estradioL [Estradiol] 0.5 mg PO DAILY 03/23/18 Losartan [Cozaar] 25 mg PO DAILY 04/20/19 Ascorbic Acid [Vitamin C] 1,000 mg PO DAILY 06/05/19 Aspirin [Aspirin EC] 1 tab PO DAILY 06/05/19 Azelaic Acid [Finacea] 1 applic TD BID PRN 06/05/19 Calcium Citrate/Vitamin D3 [Citracal-Vit D3 200 mg-250 Tab] 1 tab PO DAILY 06/05/19 Cyanocobalamin (Vitamin B-12) [B-12] 1,000 mcg PO DAILY 06/05/19 Lactobacillus Rhamnosus GG [Culturelle] 1 cap PO DAILY 06/05/19 Ondansetron [Ondansetron Odt] 8 mg PO Q8HR PRN 07/04/19 Acetaminophen [8Hr Arthritis Pain] 650 mg PO TID 10/02/19 Allergies/Adverse Reactions: Allergies Allergy/AdvReac Type Severity Reaction Status Date / Time Sulfa (Sulfonamide AdvReac Emesis Verified 12/04/19 11:19 Antibiotics) Anes History & Medical History - Anesthetic History Anesthesia Complications: reports: No previous complications, Other-see comment (does not remember multiple day stay for hysterectomy) Family history of Anesthesia Complications: Denies Family history of Malignant Hyperthermia: Denies - Medical History Cardiovascular: reports: GA (w/stent (22years ago)) Pulmonary: reports: None Gastrointestinal: reports: GERD, Colon polyps, Diverticulitis, Other Urinary: reports: None Musculoskeletal: reports: Osteoarthritis, Other Endocrine/Autoimmune: reports: HyPOthyroidism Smoking Status: Current some day smoker - Surgical History General: Cholecystectomy, Other Eyes Ears Nose Throat (EENT): Tonsil/Adenoidectomy Cardiothoracic: Coronary stent, Other Gynecologic: Hysterectomy Exam General: Alert, Oriented x3, Cooperative Dental: WNL Mouth Openin Fingerbreadth Neck Mobility: Normal Mallampati classification: II Thyromental Distance: 4-6 cm Respiratory: Lungs clear, Normal breath sounds, No respiratory distress, No accessory muscle use Cardiovascular: Regular rate Neurological: Normal speech Mental/Cognitive Status: Alert/Oriented X3, Normal for patient Cognitive Status: Within normal limits Plan Anesthesia Type: General (back up), MAC Consent for Procedure(s) Verified and Reviewed: Yes Code Status: Attempt Resuscitation ASA classification: 3-Severe systemic disease Is this case an emergency?: No
[2019-12-21] MEDS ORDERED: EPINEPHrine 1 MG/ML AMP IVP ONE (09:31)
[2019-12-21] MEDS ORDERED: BRIMONIDINE 0.2% OPHTH DROPS 5 ML OPTH ONE (09:31)
[2019-12-21] MEDS ORDERED: CHONDR SULF/HYALURONATE SYRINGE IO ONE (09:32)
[2019-12-21] MEDS ORDERED: BSS/LIDOCAINE/EPINEPHRINE 1 ML SYRINGE IO ONE (09:32)
[2019-12-21] MEDS ORDERED: TIMOLOL 0.5% OPHTH DROPS OPTH ONE (09:32)
[2019-12-21] MEDS ORDERED: TRIAMCIN/MOXIFLOX OPHTHALMIC 0.6 ML VIAL IO ONE ×2 (09:33→14:52)
[2019-12-21] MEDS ORDERED: VANCOMYCIN OPHTHALMI 8MG/0.8ML 8 MG/0.8 ML SYRINGE IO ONE (09:33)
[2019-12-21 09:59] VITALS: BP 109/51
--- NOTE | 2019-12-21 12:26 | OPERATIVE REPORT ---
DATE OF SERVICE: 12/21/2019 Physician: Konrad Negrete MD PREOPERATIVE DIAGNOSIS: Visually significant cataract, right eye. This was her first cataract surgery. POSTOPERATIVE DIAGNOSIS: Visually significant cataract, right eye. This was her first cataract surgery. DESCRIPTION OF PROCEDURE: Phacoemulsification with posterior chamber intraocular lens implant, right eye. SURGEON: Konrad Negrete MD ANESTHESIA: Monitored anesthesia care. COMPLICATIONS: None. OPERATIVE INDICATIONS: This is a 79-year-old woman with progressive vision loss in the right eye due to 4+ nuclear sclerotic, 1+ cortical and trace posterior subcapsular cataract. Best corrected visual acuity was 20/40, with glare to 20/630. Indications for surgery are overall decrease in vision, difficulty with seeing words, closed caption or game scores on TV, difficulty seeing street signs, difficulty driving in low light or at night, difficulty driving at night because of headlights from other vehicles, and difficulty with glare or bright lights in any situation. She was consented at length concerning risks and benefits of cataract surgery, after which she expressed a desire to proceed with surgery. OPERATIVE PROCEDURE: The patient was taken to OR number 3 and placed under monitored anesthesia care. Surgical timeout was conducted confirming correct patient, correct procedure, and correct surgical site. She was given topical anesthesia, and then prepped and draped in the usual sterile fashion. The eye was entered at the 12 and 9 o'clock positions. Intracameral Shugarcaine was injected into the anterior chamber, followed by Viscoat. A continuous-tear curvilinear capsulorrhexis was performed. The nucleus was hydrodissected and phacoemulsified. Cortex was evacuated using automated infusion and aspiration. Provisc was injected in the capsular bag, and a 16.0 diopter intraocular lens inserted in the bag. Infusion and aspiration was used to evacuate the viscoelastic materials. The eye was inflated to physiologic pressure using balanced salt solution and found to be watertight. Approximately 0.25 mL of a mixture of triamcinolone and moxifloxacin was injected trans sclerally into the vitreous in the inferotemporal quadrant. An additional 0.55 mL mixture of triamcinolone, moxifloxacin and vancomycin was injected subconjunctivally in the superior quadrant for infection and inflammation prophylaxis. Wound integrity was checked with Weck-Kelly sponges. The patient was taken from the operating room in good condition and given postoperative instructions. TD: 12/21/2019 09:55 NOLAN
[2019-12-21] MEDS ORDERED: BRIMONIDINE 0.2% OPHTH DROPS 5 ML ONE (14:52)
[2019-12-21] MEDS ORDERED: TIMOLOL 0.5% OPHTH DROPS ONE (14:52)
[2019-12-21] MEDS ORDERED: BSS/LIDOCAINE/EPINEPHRINE 1 ML SYRINGE ONE (14:53)
== END 2019-12-21 08:00 | disposition home or self-care (01) ==
LOC: SDS 07:59
PROVIDERS: ATTEND Ophthalmology
PROC: 08RJ3JZ Replacement of Right Lens with Synthetic Substitute, Percutaneous Approach (ICD-10-PCS; principal; 2019-12-21 09:30)
DX: H25.811 Combined forms of age-related cataract, right eye (principal); I10 Essential (primary) hypertension; C22.8 Malignant neoplasm of liver, primary, unspecified as to type; F17.200 Nicotine dependence, unspecified, uncomplicated; I25.2 Old myocardial infarction; Z79.899 Other long term (current) drug therapy; Z95.5 Presence of coronary angioplasty implant and graft; Z90.49 Acquired absence of other specified parts of digestive tract; Z85.09 Personal history of malignant neoplasm of other digestive organs; Z95.828 Presence of other vascular implants and grafts
CPT/HCPCS: 66984; A9270; J3490; V2632

== ENCOUNTER 2020-02-29 10:37 | Outpatient (CLI) | payer MEDICARE, OTHER ==
[2020-02-29] MEDS ORDERED: IOVERSOL 320 50 ML VIAL ONE (10:49)
--- NOTE | 2020-03-01 13:05 | CT Report ---
Reason: GALLBLADDER CA Procedure Date: 02/29/2020 Accession Number: [id number] / [id number] Procedure: CT - Abdomen/Pelvis WO CPT Code: Final Report FULL RESULT: EXAM: CT CHEST, ABDOMEN AND PELVIS EXAM DATE: 02/29/2020 12:05 PM. CLINICAL HISTORY: Gallbladder CA. COMPARISONS: ABDOMEN/PELVIS W/ 11/13/2019 12:45 PM ABDOMEN/PELVIS W/ 06/16/2019 12:46 PM CHEST W/ 11/13/2019 12:45 PM ABDOMEN/PELVIS W/O 02/29/2020 11:53 AM. TECHNIQUE: Routine helical CT imaging was performed through the chest, abdomen, and pelvis. IV contrast: None. Enteric contrast: No. Reconstructions: Coronal and sagittal. In accordance with CT protocol optimization, one or more of the following dose reduction techniques were utilized for this exam: automated exposure control, adjustment of mA and/or KV based on patient size, or use of iterative reconstructive technique. FINDINGS: Lungs/Pleura: No endobronchial obstruction. Mild bilateral bronchial dilatation. Slight interstitial septal prominence in the peripheral and basilar aspect of both lungs, although unchanged. No new consolidation. No vascular congestion. Calcified granuloma left lower lobe. No parenchymal lesions. Mediastinum: Heart size is normal. Coronary artery calcified plaque. Trace pericardial effusion. Small hiatal hernia. Stable superior right paratracheal lymph node measuring 5 mm as well as a slightly more cephalad short axis dimension pretracheal lymph node, 3 mm in short axis dimension. No new inferior cervical, mediastinal, hilar or axillary lymphadenopathy. Right IJ portacatheter again seen with the tip in the lower SVC. Liver: Low-attenuation lesions seen in the liver, not as well visualized compared to the most recent prior study except in the medial inferior left lobe measuring 9-10 mm on image 35, series 2 which is best seen and is stable. There is an area of low attenuation along the site of resection of the gallbladder and appears less prominent on these unenhanced images measuring up to 2.5-3 cm. No new hepatic lesions are seen on these unenhanced images. Gallbladder/Bile Ducts: Status post cholecystectomy. Area of low-attenuation along gallbladder fossa and surgical clips may be slightly less prominent compared to recent CT measuring up to 2.5-3 cm. No adjacent nodules or fluid collections are definitively seen. Spleen: Normal. Pancreas: Pancreatic parenchymal volume loss. No peripancreatic edema. Adrenal Glands: Normal. Kidneys: No hydronephrosis. No distinct masses are seen on these unenhanced images. Peritoneal Cavity/Bowel: Stomach is mildly to moderately distended. No bowel obstruction. No free air. Ventral midline fatty hernia again seen on image 33, series 2, stable. The majority of the colon is not distended. Cecum is in the right lower abdomen. No intraabdominal fluid collections. No mesenteric or omental nodules are definitively seen. Diverticula are seen in the distal colon. No diverticulitis. Appendix not distinctly visualized. Pelvic Organs: Circular ring in the upper vagina is again seen. Urinary is unremarkable. No pelvic adenopathy. No pelvic free fluid. Prolapse of the perirectal fat on the left seen on the prior study is not definitively seen on the current study. Vasculature: Vascular calcifications. No aneurysm. Bones: Degenerative changes of the thoracic and lumbar spine with focal sclerosis seen at the anterior superior T12 and extensive endplate sclerosis involving half of the vertebral bodies at L1-L2 with osteophyte formation is similar. There is lumbar scoliosis. Lumbar facet arthropathy. Mild degenerative changes of both hip joints. Grade 1 anterolisthesis of L4 on L5, as before. No new osseous lesions. Other: None. IMPRESSION: CT chest: 1. No parenchymal lesions. No pleural effusions. 2. Stable subcentimeter mediastinal lymph nodes. No new thoracic adenopathy. 3. Coronary and thoracic aortic atherosclerosis. 4. No osseous lesions. CT abdomen: 1. Status post cholecystectomy with low attenuation in the gallbladder fossa and margins of the liver less prominent compared to 11/13/2019. No new adjacent fluid collections or nodules are identified. No new hepatic lesions on these unenhanced images. 2. No abdominal lymphadenopathy. 3. No osseous lesions. 4. Marked degenerative changes at L1-L2 without significant change. No new osseous lesions. 5. Distal colonic diverticulosis. No diverticulitis. CT pelvis: 1. No pelvic adenopathy. No pelvic nodules. 2. No osseous lesions. RADIA
== END 2020-02-29 10:38 | disposition home or self-care (01) ==
LOC: DI 10:37
PROVIDERS: ATTEND Internal Medicine Hematology & Oncology
DX: C23 Malignant neoplasm of gallbladder (principal); I25.10 Atherosclerotic heart disease of native coronary artery without angina pectoris; I70.0 Atherosclerosis of aorta; Z90.49 Acquired absence of other specified parts of digestive tract; M47.816 Spondylosis without myelopathy or radiculopathy, lumbar region; K57.30 Diverticulosis of large intestine without perforation or abscess without bleeding
CPT/HCPCS: 71250; 74176

== ENCOUNTER 2020-03-15 16:15 | Outpatient (CLI) | payer MEDICARE, OTHER | END 2020-03-15 23:59 | disposition home or self-care (01) | LOC: LAB.R 16:15 | PROVIDERS: ATTEND Family Medicine | DX: R35.0 Frequency of micturition (principal) | CPT/HCPCS: 87077; 87086; 87181 ==

== ENCOUNTER 2020-03-18 12:28 | Emergency (ER) | payer MEDICARE, OTHER ==
--- NOTE | 2020-03-18 13:21 | ED Physician Documentation ---
PD HPI FEMALE - Stated complaint Stated Complaint: FATIGUE - Chief complaint Chief Complaint: UTI - History obtained from History obtained from: Patient - History of Present Illness Timing - onset: How many days ago (3-4) Timing - duration: Days (3-4) Timing - details: Gradual onset, Still present (had weakness and UTI symptoms several days ago, and got Rx for UTI by PMD. Macrobid for past 2 1/2 days with some improvement of dysuria, but has had persistent feeling of weakness and that has worsened since yesterday. Nausea without vomiting. No diarrhea.) Associated symptoms: Back pain (mild but has chronic back pain anyway), Dysuria. No: Fever, Abdominal pain, Vaginal discharge, Genital sore/lesion Similar symptoms before: Has not had sx before Recently seen: Clinic (PMD 3 days ago) Review of Systems Constitutional: reports: Chills, Myalgias. denies: Fever Nose: denies: Rhinorrhea / runny nose, Congestion Throat: denies: Sore throat Respiratory: denies: Cough GI: reports: Nausea. denies: Abdominal Pain, Vomiting, Diarrhea : reports: Dysuria Skin: denies: Rash, Lesions PD PAST MEDICAL HISTORY - Past Medical History Cardiovascular: VA (w/stent (22years ago)) Respiratory: None Endocrine/Autoimmune: HyPOthyroidism GI: GERD, Colon polyps, Diverticulitis, Other : None HEENT: Chronic vision loss Psych: Depression, Anxiety Musculoskeletal: Osteoarthritis, Other - Past Surgical History Past Surgical History: Yes General: Cholecystectomy, Other /TUTOR COORDINATOR: Hysterectomy Cardiovascular: Coronary stent, Other HEENT: Tonsil/Adenoidectomy - Present Medications Home Medications: Ambulatory Orders Medication Instructions Recorded Confirmed Atorvastatin Calcium 40 mg PO DAILY 03/23/18 03/04/20 Famotidine 40 mg PO BID 03/23/18 03/04/20 Fexofenadine HCl [Rosa Allergy] 180 mg DAILY 03/23/18 03/04/20 LORazepam [Ativan] 0.5 mg PO Q6H PRN 03/23/18 03/04/20 estradioL [Estradiol] 0.5 mg PO DAILY 03/23/18 03/04/20 Losartan [Cozaar] 25 mg PO DAILY 04/20/19 03/04/20 Ascorbic Acid [Vitamin C] 1,000 mg PO DAILY 06/05/19 03/04/20 Aspirin [Aspirin EC] 1 tab PO DAILY 06/05/19 03/04/20 Azelaic Acid [Finacea] 1 applic TD BID PRN 06/05/19 03/04/20 Calcium Citrate/Vitamin D3 1 tab PO DAILY 06/05/19 03/04/20 [Citracal-Vit D3 200 mg-250 Tab] Cyanocobalamin (Vitamin B-12) 1,000 mcg PO DAILY 06/05/19 03/04/20 [B-12] Lactobacillus Rhamnosus GG 1 cap PO DAILY 06/05/19 03/04/20 [Culturelle] Ondansetron [Ondansetron Odt] 8 mg PO Q8HR PRN 07/04/19 03/04/20 Acetaminophen [8Hr Arthritis Pain] 650 mg PO TID 10/02/19 03/04/20 Multivitamin [Multiple Vitamins] 1 tab PO DAILY 01/08/20 03/04/20 Cephalexin [Keflex] 500 mg PO TID #15 capsule 03/18/20 - Allergies Allergies/Adverse Reactions: Allergies Allergy/AdvReac Type Severity Reaction Status Date / Time Sulfa (Sulfonamide AdvReac Emesis Verified 03/18/20 12:39 Antibiotics) - Social History Does the pt smoke?: Yes Smoking Status: Current some day smoker Does the pt drink ETOH?: No Does the pt have substance abuse?: No - Immunizations Immunizations are current?: Yes - POLST Patient has POLST: No PD ED PE NORMAL - Vitals Vital signs reviewed: Yes - General General: Alert and oriented X 3, No acute distress, Well developed/nourished - HEENT HEENT: Pharynx benign - Neck Neck: Supple, no meningeal sign, No adenopathy - Cardiac Cardiac: RRR, No murmur - Respiratory Respiratory: Clear bilaterally, Other (right chest wall port area without redness nor tenderness. ) - Abdomen Abdomen: Normal bowel sounds, Soft, Non tender, Non distended, No organomegaly - Female Female : Deferred - Rectal Rectal: Deferred - Back Back: No CVA TTP - Derm Derm: Normal color, Warm and dry - Extremities Extremities: Normal ROM s pain, No edema, No calf tenderness / cord - Neuro Neuro: Alert and oriented X 3, No motor deficit, Normal speech Eye Opening: Spontaneous Motor: Obeys Commands Verbal: Oriented GCS Score: 15 - Psych Psych: Normal mood, Normal affect Results - Vitals Vitals: Vital Signs - 24 hr 03/18/20 03/18/20 03/18/20 12:51 13:30 15:00 Temperature 36.7 C Heart Rate 87 69 70 Respiratory 20 20 20 Rate Blood Pressure 111/58 L 133/63 H 103/50 L O2 Saturation 93 95 97 Oxygen O2 Source Room air - Labs Labs: Laboratory Tests 03/18/20 03/18/20 03/18/20 13:10 13:10 13:10 WBC 6.6 RBC 3.13 L Hgb 10.7 L Hct 31.6 L MCV 101.0 H MCH 34.2 H MCHC 33.9 RDW 12.2 Plt Count 155 MPV 9.9 Neut # (Auto) 5.5 Lymph # (Auto) 0.2 L Mcdonough # (Auto) 0.8 Eos # (Auto) 0.1 Baso # (Auto) 0.0 Absolute Nucleated RBC 0.00 Nucleated RBC % 0.0 Sodium 133 L Potassium 3.7 Chloride 101 Carbon Dioxide 23 Anion Gap 9.0 BUN 28 H Creatinine 1.1 H Estimated GFR (MDRD) 48 L Glucose 128 H Lactic Acid 0.9 Calcium 8.9 Magnesium Total Bilirubin 0.6 AST 35 ALT 31 Alkaline Phosphatase 71 Total Protein 7.3 Albumin 3.9 Globulin 3.4 Albumin/Globulin Ratio 1.1 Lipase 24 Urine Color Urine Clarity Urine pH Ur Specific Kaufman Urine Protein Urine Glucose (UA) Urine Ketones Urine Occult Blood Urine Nitrite Urine Bilirubin Urine Urobilinogen Ur Leukocyte Esterase Urine RBC Urine WBC Ur Squamous Epith Cells Urine Bacteria Ur Microscopic Review Urine Culture Comments 03/18/20 03/18/20 13:10 14:06 WBC RBC Hgb Hct MCV MCH MCHC RDW Plt Count MPV Neut # (Auto) Lymph # (Auto) Mcdonough # (Auto) Eos # (Auto) Baso # (Auto) Absolute Nucleated RBC Nucleated RBC % Sodium Potassium Chloride Carbon Dioxide Anion Gap BUN Creatinine Estimated GFR (MDRD) Glucose Lactic Acid Calcium Magnesium 1.9 Total Bilirubin AST ALT Alkaline Phosphatase Total Protein Albumin Globulin Albumin/Globulin Ratio Lipase Urine Color YELLOW Urine Clarity SL. CLOUDY Urine pH 6.0 Ur Specific Kaufman 1.020 Urine Protein NEGATIVE Urine Glucose (UA) NEGATIVE Urine Ketones TRACE Urine Occult Blood NEGATIVE Urine Nitrite NEGATIVE Urine Bilirubin NEGATIVE Urine Urobilinogen 1 (NORMAL) Ur Leukocyte Esterase SMALL H Urine RBC 0-5 Urine WBC 6-10 H Ur Squamous Epith Cells MANY Squamous H Urine Bacteria Few Ur Microscopic Review INDICATED Urine Culture Comments NOT INDICATED PD MEDICAL DECISION MAKING - ED course Complexity details: considered differential (still has UTI on UA. Can change from the Macrobid to Keflex based on sensitivities of her culture. current symptoms could be persistent UTI or potential side effects of Macrobid, though less likely. ), d/w patient Departure - Departure Disposition: 01 Home, Self Care Clinical Impression: Weakness Urinary tract infection Qualifiers: Urinary tract infection type: site unspecified Hematuria presence: without hematuria Qualified Code(s): N39.0 - Urinary tract infection, site not specified Condition: Stable Record reviewed to determine appropriate education?: Yes Follow-Up: Delphine Rajan DO [Primary Care Provider] - Prescriptions: Cephalexin [Keflex] 500 mg PO TID #15 capsule Comments: The urinary infection still seems to be present despite the several days Macrobid antibiotics so far, so we will change it to cephalexin antibiotic. Urine culture from the eighth showed sensitivity to this antibiotic so it should be effective. Stay well-hydrated. Your blood count and electrolytes appear good so no signs of more significant infection or sepsis. Discharge Date/Time: 03/18/20 15:33
[2020-03-18 13:30] LABS: BASOPHILS % (AUTO) 0.2 %; EOSINOPHILS # (AUTO) 0.1 10^3/uL (0.0-0.7); EOSINOPHILS % (AUTO) 1.7 %; HGB - HEMOGLOBIN 10.7 g/dL (12.0-16.0); LYMPHOCYTES # (AUTO) 0.2 10^3/uL (1.5-3.5); LYMPHOCYTES % (AUTO) 3.5 %; MEAN CORPUSCULAR HEMOGLOBIN 34.2 pg (27.0-31.0); MEAN CORPUSCULAR HGB CONC 33.9 g/dL (32.0-36.0); MEAN PLATELET VOLUME 9.9 fL (7.9-10.8); MONOCYTES # (AUTO) 0.8 10^3/uL (0.0-1.0); NEUTROPHILS # (AUTO) 5.5 10^3/uL (1.5-6.6); NEUTROPHILS % (AUTO) 82.3 %; PLT - PLATELET COUNT 155 10^3/uL (130-450); RED BLOOD COUNT 3.13 10^6/uL (4.20-5.40); RED CELL DISTRIBUTION WIDTH 12.2 % (12.0-15.0); WHITE BLOOD COUNT 6.6 x10^3/uL (4.8-10.8)
[2020-03-18 13:38] LABS: ALBUMIN 3.9 g/dL (3.2-5.5); ALBUMIN/GLOBULIN RATIO 1.1 (1.0-2.2); BILIRUBIN,TOTAL 0.6 mg/dL (0.2-1.0); CALCIUM 8.9 mg/dL (8.5-10.3); CREATININE 1.1 mg/dL (0.4-1.0); TOTAL PROTEIN 7.3 g/dL (6.7-8.2)
[2020-03-18] MEDS ORDERED: cefTRIAXone 1 GM VIAL IVP STA (13:38)
[2020-03-18] MEDS ORDERED: SODIUM CHLORIDE 0.9% 1,000 ML IV ONE (13:38)
[2020-03-18 14:24] LABS: BILIRUBIN,URINE NEGATIVE (NEGATIVE); GLUCOSE, URINE (UA) NEGATIVE (NEGATIVE); KETONES,URINE (UA) TRACE mg/dL (NEGATIVE); LEUKOCYTE ESTERASE, URINE SMALL (NEGATIVE); NITRITE,URINE NEGATIVE (NEGATIVE); OCCULT BLOOD,URINE NEGATIVE (NEGATIVE); PROTEIN,URINE NEGATIVE (NEGATIVE); UROBILINOGEN,URINE 1 (NORMAL) E.U./dL (NORMAL)
[2020-03-18 14:34] LABS: CLARITY,URINE SL. CLOUDY (CLEAR)
[2020-03-18 14:35] LABS: BACTERIA,URINE Few /HPF (None Seen); RBC,URINE 0-5 /HPF (0-5); SQUAMOUS EPITHELIAL CELL,UR MANY Squamous (<= Few)
[2020-03-18 15:11] VITALS: BP 103/50
== END 2020-03-18 15:33 | disposition home or self-care (01) ==
LOC: ED 12:28
DX: N39.0 Urinary tract infection, site not specified (principal); R53.1 Weakness; Z88.2 Allergy status to sulfonamides; F17.200 Nicotine dependence, unspecified, uncomplicated; Z79.82 Long term (current) use of aspirin
CPT/HCPCS: 36415; 80053; 81001; 81003; 83605; 83690; 83735; 85025; 87086; 96361; 96374; 96375; 99284

== ENCOUNTER 2020-04-08 15:19 | Outpatient (CLI) | payer MEDICARE, OTHER ==
--- NOTE | 2020-04-08 17:18 | CONSULTATION NOTE ---
Palliative Care Follow Up - Referral Referring Provider: Dr. Clovis Marie Time of Visit: [id number] Referral setting: Home Referral Reason: Fatigue/Gallbladder Stage IV/Pal Care - Information Sources Records reviewed: Previous records reviewed History/Review of Systems obtained from: Patient Exam limitations: No limitations - History of Present Illness Update Brief HPI Update: This is a rashi 79-year-old woman who was initially diagnosed with gallbladder stage II in 05/2016 in [place], she had resection followed by adjuvant gemcitabine 03/2017. She then presented with relapse gallbladder cancer since 09/2018, had recurrent therapy which she completed 12/2018 with only a partial response. She most recently completed concurrent radiation and Xeloda from 08/2019 until 08/12/2019. She has continued to be on observation, and was given the okay to take off to [place]. She has done fairly well, though she reports she has consistent and persistent fatigue. She though is able to manage her ADLs, and actually quite a bit of activity though not up to her baseline. Patient unfortunately when she turned, was diagnosed with a UTI, has recovered since then, though did have a yeast infection as well. Her understanding that she will meet with a physician in May, and possibly consider rescanning unless patient presents with increased symptoms. Patient reports only intermittent abdominal pain, she has been able to remain weight neutral, she has noted some chills at night. She has had a history of hy pothyroidism, currently not on thyroid medication. Her other new symptom is over the last few weeks, has had dark stools though no lauryn bleeding. Denies any dizziness, she is due to have a port flush this Wednesday, will arrange for a CBC and thyroid studies. Social History - Living Situation Living arrangement: At home Living Situation: With spouse/s.o. Support System: Patient currently living at home alone, her is still in [place]. He has received cataract surgery. She feels safe here, no worries and is managing without difficulty. She has very good neighbors, and expects her up in the next few weeks. Medications/Allergies - Medications Home Medications: Ambulatory Orders Medication Instructions Recorded Confirmed Atorvastatin Calcium 40 mg PO DAILY 03/23/18 03/22/20 Famotidine 40 mg PO BID 03/23/18 03/22/20 LORazepam [Ativan] 0.5 mg PO Q6H PRN 03/23/18 04/08/20 estradioL [Estradiol] 0.5 mg PO DAILY 03/23/18 04/08/20 Losartan [Cozaar] 25 mg PO DAILY 04/20/19 04/08/20 Ascorbic Acid [Vitamin C] 1,000 mg PO DAILY 06/05/19 03/22/20 Aspirin [Aspirin EC] 1 tab PO DAILY 06/05/19 03/22/20 Azelaic Acid [Finacea] 1 applic TD BID PRN 06/05/19 03/22/20 Calcium Citrate/Vitamin D3 1 tab PO DAILY 06/05/19 03/22/20 [Citracal-Vit D3 200 mg-250 Tab] Cyanocobalamin (Vitamin B-12) 1,000 mcg PO DAILY 06/05/19 03/22/20 [B-12] Lactobacillus Rhamnosus GG 1 cap PO DAILY 06/05/19 04/08/20 [Culturelle] Ondansetron [Ondansetron Odt] 8 mg PO Q8HR PRN 07/04/19 04/08/20 Acetaminophen [8Hr Arthritis Pain] 650 mg PO TID 10/02/19 03/22/20 Multivitamin [Multiple Vitamins] 1 tab PO DAILY 01/08/20 04/08/20 Docusate Sodium [Dss] 1 tab PO DAILY 04/08/20 04/08/20 Loratadine [Claritin] 10 mg PO DAILY 04/08/20 04/08/20 polyethylene glycoL 3350 [Miralax] 17 gm PO DAILY PRN 04/08/20 04/08/20 - Allergies Allergies/Adverse Reactions: Allergies Allergy/AdvReac Type Severity Reaction Status Date / Time Sulfa (Sulfonamide AdvReac Emesis Verified 03/22/20 15:39 Antibiotics) Review of Systems - Constitutional Constitutional: reports: Fatigue, Chills (feeling cold consistently;), Weight stable. denies: Fever, Night sweats - Eyes Eyes: reports: Vision loss, Other (to get second cataract surgery) - Ears, Nose & Throat Ears, Nose & Throat: reports: Nasal congestion (been on zeny for 15 years; wondering about changing it up), Dry mouth - Cardiovascular Cardiovascular: reports: Decr. exercise tolerance. denies: Chest pain, Edema - Respiratory Respiratory: reports: Cough, Sputum production (light yellow), SOB with exertion, Other (continues to smoke). denies: Wheezing, SOB at rest - Gastrointestinal Gastrointestinal: reports: Abdominal pain (less often; intermittent with too much activity), Black stools (dark stools for three weeks), Early satiety. denies: Nausea, Reflux/heartburn - Genitourinary Genitourinary: reports: Frequency, Urgency, Incontinence (worsening with increase fluid intake; has pessary). denies: Dysuria - Musculoskeletal Musculoskeletal: reports: Back pain (DJD in spine/lower back exacerbates about three times a week; often in response to overdoing; relieved with heat and apap), Muscle weakness - Neurological Neurological: reports: General weakness. denies: Headache - Psychiatric Psychiatric: reports: Depression, Anxiety - Endocrine Endocrine: reports: Intolerance to cold. denies: Hypothyroidism - Hematologic/Lymphatic Hematologic/Lymphatic: reports: Anemia, Recurrent infections (03/18 required ED visit for UTI; followed by severe yeast infection) - All Other Systems All Other Systems: reports: Reviewed and negative Physical Exam - Vital Signs Temperature: 96.7 C Pulse Rate: 84 Respiratory Rate: 18 O2 Saturation: 96 (ra at rest) Blood Pressure: 118/68 - Physical Exam General Appearance: positive: Alert, Anxious Eyes Bilateral: positive: Normal inspection ENT: positive: No signs of dehydration Neck: positive: Trachea midline Cardiovascular: positive: Regular rate & rhythm Respiratory: positive: No respiratory distress. negative: Wheezes, Rales, Rhonchi Abdomen: positive: Soft, Nml bowel sounds. negative: Distended Skin: positive: Pallor, Rash (rosacia on face) Extremities: positive: No pedal edema Neurologic/Psychiatric: positive: Oriented x3, Mood/affect nml Palliative Care - POLST Patient has POLST: No Pain: Pain improved, Location (bilateral abd pain; fluctuates and intermittent; worsened with increase activity; back pain more bothersome) Tiredness/Fatigue: Moderate (4-6) Drowsiness/Sedation: None Nausea: None Anorexia: Mild (1-3) Dyspnea: Mild (1-3) Depression: Mild (1-3) Anxiety: Moderate (4-6) (worried about prognosis and whats next;) Feelings of wellbeing/Perceived Quality of Life: Good, Acceptable, Improved Sleep: Variable sleep pattern (up at night to void; difficult falling asleep but is getting 8-10 hours) Constipation: Yes, Intermittent constipation Performance Status: Patient is ambulatory, able to manage her own ADLs. She has been wanting to do some progressive walking, but has found it overwhelming to consider taking this on. We did discuss at length what some of the barriers were, may actually be more emotional than physical. - Palliative Care Discussion: Patient is feeling grateful overall, to have her extended time to be off treatment. She does feel like she is in fairly well despite her overwhelming fatigue and treatment, she is quite pleased to have time off right now. She has not seen oncologist till end of May. She does though worry about her prognosis, what to expect next, how long she might have. She reports it is hard to find anything regarding gallbladder cancer, and is wondering if this information would be helpful. She is trying to stay in the moment, but she is also plantar. She though does admit to underlying anxiety, though she feels like this is currently controlled. Impression and Recommendations - Palliative Care Impression: This is a rashi 79-year-old woman with relapsed gallbladder cancer, having most recently finished radiation and Xeloda. She is currently on surveillance, had restaging scans 02/29 2020 without evidence of disease relapse or progression. She presents with moderate symptom burden, but continues to improve overall. Palliative care to continue provide support for symptom management and an ticipatory guidance. Recommendations/Counseling Done: 1. Allergies. Patient reports persistent nasal congestion, has long-term had allergies. Was wondering about switching up her Zeny. Discussed Claritin/loratadine 10 mg daily, can trade right across and see if it is more helpful. Both in the same group, if worsening she is planning to see her PCP soon. Back pain secondary to DJD. Patient currently using heat and APAP, discussed ways to better pace herself, as well as use of topicals written out suggestion for Biofreeze. Patient has increased pain with prolonged standing, and ways to doubt her current schedule. 3. History of UTI. Patient is actually due for pessary change, recommended given recent infection and high risk, to follow-up with PCP sooner than later. Patient with increased incontinence, but is trying to push fluids. 4. Fatigue. This is multi-factorial in origin. And concern regarding patient's description of dark stools, will check a CBC, along with T4/TSH. Did recommend though patient start progressive ambulatory program, counseling provided regarding overcoming barriers. 5. Anxiety. Patient reports has not needed her Lorazepam or taken it since radiation. She is using her self-care behaviors, which include prayer, support from her neighbors, and family. Patient does not feel she needs any external further support, did recommend also have downstream biomanufacturing technician and PILE DRIVER OPERATOR available. 6. Advanced care planning. Patient continues to have curiosity and concern regarding prognosis. 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 Discussed important to write down her questions for oncology, did offer to reach out sooner if this information would be of help, she will consider. Time Spent: 45 minutes with greater than 50% of this done in counseling regarding symptom management, coordination of care, anticipatory guidance.
== END 2020-04-08 15:20 | disposition home or self-care (01) ==
LOC: PC 15:19
PROVIDERS: ATTEND Nurse Practitioner Adult Health
DX: Z51.5 Encounter for palliative care (principal); R53.83 Other fatigue; R10.9 Unspecified abdominal pain; M47.9 Spondylosis, unspecified; F41.9 Anxiety disorder, unspecified; R19.5 Other fecal abnormalities; K59.00 Constipation, unspecified; R09.81 Nasal congestion; C23 Malignant neoplasm of gallbladder; F17.200 Nicotine dependence, unspecified, uncomplicated; Z79.899 Other long term (current) drug therapy; Z92.3 Personal history of irradiation; Z87.440 Personal history of urinary (tract) infections; Z92.21 Personal history of antineoplastic chemotherapy
CPT/HCPCS: 99349

== ENCOUNTER 2020-05-21 14:13 | Outpatient (CLI) | payer MEDICARE, OTHER | END 2020-05-21 14:14 | disposition home or self-care (01) | LOC: LAB 14:13 | PROVIDERS: ATTEND Ophthalmology | DX: Z01.812 Encounter for preprocedural laboratory examination (principal); H25.812 Combined forms of age-related cataract, left eye; Z20.828 Contact with and (suspected) exposure to other viral communicable diseases ==

== ENCOUNTER 2020-05-23 08:38 | Day surgery (SDC) | payer MEDICARE, OTHER ==
[2020-05-23] MEDS ORDERED: MIDAZOLAM 2 MG/2 ML VIAL IVP ONE (08:39)
[2020-05-23] MEDS ORDERED: LACTATED RINGERS 500 ML IV ONE (08:47)
--- NOTE | 2020-05-23 09:08 | ANESTHESIA ---
Pre-Anesthesia VS, & Labs - Diagnosis Left Cataract - Procedure Left ECCE PHACO with IOL Vital Signs: Temp Pulse Resp BP Pulse Ox 36.2 C L 56 L 12 132/66 H 100 05/23/20 08:47 05/23/20 08:47 05/23/20 08:47 05/23/20 08:47 05/23/20 08:47 Height 5 ft 2 in Weight (kg) 63.9 kg Body Mass Index 26.2 - NPO >8 hours - Is Patient ?: No - Lab Results Lab results reviewed: Yes Home Medications and Allergies Atorvastatin Calcium 40 mg PO DAILY 03/23/18 Famotidine 40 mg PO BID 03/23/18 estradioL [Estradiol] 0.5 mg PO DAILY 03/23/18 Losartan [Cozaar] 25 mg PO DAILY 04/20/19 Ascorbic Acid [Vitamin C] 1,000 mg PO DAILY 06/05/19 Aspirin [Aspirin EC] 1 tab PO DAILY 06/05/19 Azelaic Acid [Finacea] 1 applic TD BID PRN 06/05/19 Calcium Citrate/Vitamin D3 [Citracal-Vit D3 200 mg-250 Tab] 1 tab PO DAILY 06/05/19 Cyanocobalamin (Vitamin B-12) [B-12] 1,000 mcg PO DAILY 06/05/19 Lactobacillus Rhamnosus GG [Culturelle] 1 cap PO DAILY 06/05/19 Ondansetron [Ondansetron Odt] 8 mg PO Q8HR PRN 07/04/19 Acetaminophen [8Hr Arthritis Pain] 650 mg PO TID 10/02/19 Multivitamin [Multiple Vitamins] 1 tab PO DAILY 01/08/20 Docusate Sodium [Dss] 1 tab PO DAILY 04/08/20 polyethylene glycoL 3350 [Miralax] 17 gm PO DAILY PRN 04/08/20 Allergies/Adverse Reactions: Allergies Allergy/AdvReac Type Severity Reaction Status Date / Time Sulfa (Sulfonamide AdvReac Emesis Verified 03/22/20 15:39 Antibiotics) Anes History & Medical History - Anesthetic History Anesthesia Complications: reports: No previous complications Family history of Anesthesia Complications: Denies Family history of Malignant Hyperthermia: Denies - Medical History Cardiovascular: reports: MS Pulmonary: reports: None Gastrointestinal: reports: GERD, Colon polyps, Diverticulitis, Other Urinary: reports: None Musculoskeletal: reports: Osteoarthritis, Other Endocrine/Autoimmune: reports: HyPOthyroidism Smoking Status: Current some day smoker - Surgical History General: Cholecystectomy, Other Eyes Ears Nose Throat (EENT): Cataracts, Tonsil/Adenoidectomy Cardiothoracic: Coronary stent, Other Gynecologic: Hysterectomy Exam General: Alert, Oriented x3, Cooperative Dental: WNL Mouth Openin Fingerbreadth Neck Mobility: Normal Mallampati classification: II Thyromental Distance: 4-6 cm Respiratory: Lungs clear Cardiovascular: Regular rate Plan Anesthesia Type: MAC Consent for Procedure(s) Verified and Reviewed: Yes Code Status: Attempt Resuscitation ASA classification: 3-Severe systemic disease Is this case an emergency?: No
[2020-05-23] MEDS ORDERED: TRIAMCIN/MOXIFLOX OPHTHALMIC 0.6 ML VIAL IO ONE ×2 (10:13→10:22)
[2020-05-23] MEDS ORDERED: EPINEPHrine 1 MG/ML AMP ONE (10:13)
[2020-05-23] MEDS ORDERED: timoloL maleate 0.5% OPHTH DROPS (10ML) ONE (10:14)
[2020-05-23] MEDS ORDERED: BRIMONIDINE 0.2% OPHTH DROPS 5 ML ONE (10:14)
[2020-05-23] MEDS ORDERED: BSS/LIDOCAINE/EPINEPHRINE 1 ML SYRINGE ONE (10:14)
[2020-05-23] MEDS ORDERED: VANCOMYCIN OPHTHALMI 8MG/0.8ML 8 MG/0.8 ML SYRINGE IO ONE ×2 (10:14→10:20)
[2020-05-23] MEDS ORDERED: BRIMONIDINE 0.2% OPHTH DROPS 5 ML OPTH ONE (10:18)
[2020-05-23] MEDS ORDERED: CHONDR SULF/HYALURONATE SYRINGE IO ONE (10:19)
[2020-05-23] MEDS ORDERED: EPINEPHrine 1 MG/ML AMP IR ONE (10:19)
[2020-05-23] MEDS ORDERED: BSS/LIDOCAINE/EPINEPHRINE 1 ML SYRINGE IO ONE (10:19)
[2020-05-23] MEDS ORDERED: PROPARACAINE 0.5% OPHTH DROPS 15 ML EACHEYE ONE (10:19)
[2020-05-23] MEDS ORDERED: timoloL maleate 0.5% OPHTH DROPS (10ML) LEFTEYE ONE (10:21)
[2020-05-23 11:05] VITALS: BP 106/52
--- NOTE | 2020-05-23 11:16 | OPERATIVE REPORT ---
DATE OF SERVICE: 05/23/2020 Physician: Konrad Negrete MD PREOPERATIVE DIAGNOSIS: Visually significant cataract, left eye. Cataract surgery was performed on the right eye on 12/21/2019. POSTOPERATIVE DIAGNOSIS: Visually significant cataract, left eye. Cataract surgery was performed on the right eye on 12/21/2019. PROCEDURE: Phacoemulsification with posterior chamber intraocular lens implant, left eye. SURGEON: Konrad Negrete MD ANESTHESIA: Monitored anesthesia care. COMPLICATIONS: None. OPERATIVE INDICATIONS: This is a 80-year-old woman with progressive vision loss in the left eye due to 3-4+ nuclear sclerotic, 1+ cortical and vacuolar cataract. Best corrected visual acuity was 20/40, with glare to 20/70 in the left eye. Indications for surgery were overall decrease in vision, difficulty reading, difficulty seeing words, closed caption or game scores on TV, difficulty seeing street signs, difficulty driving in low light or at night, difficulty driving at night because of headlights from other vehicles, difficulty with glare or bright lights in any situation, and decreased acuity with firearms. She was consented at length concerning risks and benefits of cataract surgery, after which she expressed a desire to proceed with surgery. OPERATIVE PROCEDURE: Patient was taken to OR #3 and placed under monitored anesthesia care and surgical timeout was conducted confirming correct patient, correct procedure, and correct surgical site. She was given topical anesthesia, and prepped and draped in the usual sterile fashion. The eye was entered at the 6 and 3 o'clock positions. Intracameral Shugarcaine was injected into the anterior chamber, followed by Viscoat. A continuous-tear curvilinear capsulorrhexis was performed. The nucleus was hydrodissected and phacoemulsified. The cortex was evacuated using automated infusion and aspiration. Provisc was injected in the capsular bag, and a 16.5 diopter intraocular lens was inserted into the bag. Infusion and aspiration was used to evacuate the viscoelastic materials. The eye was inflated to physiologic pressure using balanced salt solution and found to be watertight. Approximately 0.25 mL of a mixture of triamcinolone and moxifloxacin was injected trans sclerally into the vitreous in the inferotemporal quadrant. An additional 0.55 mL of a mixture of triamcinolone, moxifloxacin and vancomycin was injected subconjunctivally in the superior quadrant for infection and inflammation prophylaxis. Wound integrity was checked with Weck-Kelly sponges. Patient was taken from the Operating Room in good condition and given postoperative instructions. TD: 05/23/2020 10:45 NOLAN
== END 2020-05-23 08:39 | disposition home or self-care (01) ==
LOC: SDS 08:38
PROVIDERS: ATTEND Ophthalmology
DX: H25.812 Combined forms of age-related cataract, left eye (principal); I10 Essential (primary) hypertension; Z98.41 Cataract extraction status, right eye; I25.2 Old myocardial infarction; F17.200 Nicotine dependence, unspecified, uncomplicated
CPT/HCPCS: 66984; A9270; J3490; V2632

== ENCOUNTER 2020-07-02 12:52 | Outpatient (CLI) | payer MEDICARE, OTHER ==
[2020-07-02 13:50] VITALS: BP 128/62
--- NOTE | 2020-07-02 13:50 | SLEEP CARE CONSULTATION ---
Information from patient questionnaire entered by Shania Connor. I have reviewed and concur with the information entered by Shania Connor. This document represents the service I personally performed and the decisions made by me, Felisa Ocasio ARNP. History of Present Illness Service Date and Time: 07/02/2020 1252 Reason for Visit: New patient Chief Complaint: reports: Unrefreshed sleep (only when get up before normal get up time), Snoring ( says she purrs, unsure if she snores), Fatigue (depends upon how much rest she gets; she has gone through 5 years of chemo/radiation for cancer), Other (oncologist sent her here due to fatigue). denies: Insomnia, Excessive daytime sleepiness, Observed pauses in breathing, Frequent awakenings at night Date of Onset: 5 years Usual bedtime: 10 PM to 2 AM, depending on TV programs Time it takes to fall asleep: 10-20 MINUTES Snores at night: No Observed to quit breathing while asleep: No Sleeps alone due to snoring: No Number of times waking at night: 2-3 Reasons for waking at night: reports: Bathroom. denies: Choking, Snoring, Gasping for air, Pain Toss, Turn, or Twitch while sleeping: No Recalls having dreams: Yes Usually gets out of bed at: [id number] Feels refreshed in the morning: Yes (and no) Morning headache: No Sleepy or fatigued during the day: Yes (and no) Ever fallen asleep while driving: No Takes day naps: No Dreams during day naps: No Prior sleep studies: No Additional HPI information: I had the pleasure of seeing NELSON MORIN today regarding the possibility of her having a sleep disorder. Her current complaints are unrefreshed sleep and excessive daytime sleepiness with fatigue and light snoring. She states she was recommended to come in for evaluation by her oncologist because she is tired all the time. 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 She states she can sometimes feel refreshed in the mornings if she is able to sleep to her regular get up time but she is not when she gets up before this time. She states she gets up about 8-11 AM and goes to sleep about 10 PM to 2 AM depending on what is on television. - Parasomnia Symptoms Ever been unable to move upon waking from sleep: No Walks in sleep: No Talks in sleep: No Ever acted out dreams in sleep: No Ever felt weak in the knees when startled or emotional: No Bothered by creepy, crawly, restless sensations in legs: Yes (rarely) Problems with memory or concentration: Yes (normal for age) Subjective Initial [place] Sleepiness Scale score: 6 Past Medical History Past Medical History: reports: Coronary Heart Disease (heart stent 25 years ago), Hypothyroidism (when young but resolved with first child at 19-20 years old), Anxiety (connected with her chemo, cancer dx), GERD, Other (cancer, 4th stage gallbladder cancer). denies: Hypertension, Congestive Heart Failure, Diabetes, Stroke, Gout, Arrythmia, Anemia, Depression, Mood disorder, Attention deficit Social History The patient's occupation is retired. Patient is and lives in [place]. Have you smoked in the past 12 months: Yes (off/on, not consistent) Alcohol use: Yes Alcohol amount and frequency: glass of wine rarely Caffeine use: Yes Caffeine amount and frequency: 1 cup of coffee a day Family History Family history of sleep disordered breathing: No Allergies and Home Medications Drug allergies reviewed: Yes (sulfa antibiotics) Home medication list reviewed: Yes (cannot remember them all; claritin, one for heartburn) Review of Systems Cardiovascular: denies: high blood pressure, palpitations, chest pain, irregular heart rate or pulse Respiratory: denies: shortness of breath, chronic cough Gastrointestinal: denies: heartburn, difficulty swallowing Urinary: denies: incontinence Neurological: denies: headaches, seizure, head trauma, speech dysfunction, gait or balance problems Psychiatric: reports: anxiety. denies: Attention Deficit Hyperactivity, depression, mood disorder, claustrophobia Ear/Nose/Throat: reports: nasal congestion, sinus problems, dry mouth/throat (occasional due to medications), tonsillectomy, wisdom teeth removed. denies: nose bleeds, hoarseness, injury to nose Endocrine: reports: thyroid disease (history) Musculoskeletal: denies: muscle pain or cramping, mobility problems Immunologic: reports: allergies to food or environment (year round allergies) Physical Exam Blood Pressure: 128/62 Cuff size: regular Heart Rate: 56 O2 Saturation: 96 Height: 5 ft 2 in Weight: 144 lb 6.4 oz Body Mass Index: 26.4 BMI Classification: Overweight Neck circumference: 15 (inches) HEENT: No craniofacial malformation Nostrils: patent to airflow Turbinates: normal Septum: midline Mouth and throat: narrow oropharynx Soft palate: normal Hard palate: normal Uvula: normal Uvula visualization: 25% Mallampati Class III Tongue: normal in size Tonsils: absent bilaterally Chin and jaw: normal size and position Neck: normal w/o lymphadenopathy or thyromegaly Heart: regular rate and rhythm Lungs: clear bilaterally Impression and Plan 1. Suspected Obstructive Sleep Apnea-Hypopnea Syndrome, as suggested by a history of possible light snoring, unrefreshed sleep, excessive daytime sleepiness, cognitive impairment, and fatigue. She does have a history of gallbladder cancer, GERD, a heart stent 25 years ago after a heart attack and some anxiety due to her cancer diagnosis. I recommend proceeding to polysomnography to confirm the diagnosis and to assess severity. If the patient has significant sleep disordered breathing, a manual CPAP titration study will also be performed to find the optimal treatment pressure. I informed the patient of what the sleep studies involve and after some discussion, obtained agreement to proceed. The pathophysiology of obstructive sleep apnea-hypopnea syndrome was discussed with the patient and health risks of cardiovascular and cerebrovascular disease if not treated. AASM brochure for obstructive sleep apnea-hypopnea syndrome given and reviewed. 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 Patient agreed to plan. * Schedule polysomnography +- manual CPAP titration study. * Avoid long distance driving or driving when feeling sleepy. * Avoid sedative and muscle relaxant around bedtime. * Attempt to lose weight. * Review instructions provided by trained office staff on how to prepare for the sleep study. * Return for follow-up after sleep study completed. Visit Type: In Office Time Spent with Patient (minutes): 30 Provider Statement: I spent 100% of the Face to Face Visit with the patient with greater than 50% spent counseling the patient and coordination of care.
== END 2020-07-02 12:53 | disposition home or self-care (01) ==
LOC: SC 12:52
PROVIDERS: ATTEND Nurse Practitioner Family
DX: G47.10 Hypersomnia, unspecified (principal); G47.8 Other sleep disorders; R53.83 Other fatigue; R06.83 Snoring; E66.3 Overweight; Z68.26 Body mass index [BMI] 26.0-26.9, adult
CPT/HCPCS: 99204; G0463; 99212

== ENCOUNTER 2020-07-18 13:40 | Outpatient (CLI) | payer MEDICARE, OTHER ==
--- NOTE | 2020-07-18 18:22 | CONSULTATION NOTE ---
Palliative Care Follow Up - Referral Referring Provider: Dr. Clovis Marie Time of Visit: [id number] Referral setting: [facility] [place] Referral Reason: Fatigue/Relapsed gallbladder CA - Information Sources Records reviewed: Previous records reviewed History/Review of Systems obtained from: Patient Exam limitations: No limitations - History of Present Illness Update Brief HPI Update: This is a rashi 80 woman with relapsed gallbladder cancer since 09/14/2018. She most recently was treated with concurrent radiation/Xeloda, done in 10/2019. She is currently on surveillance, and due for her scans towards the end of August. Patient's original diagnosis was 05/2016 in [place], treated with resection followed by adjuvant gemcitabine. She was found to have relapse gallbladder cancer 09/2018, was then treated with [place], gemcitabine x3 cycles, and PET/CT scan 03/2019 showed persistent localized disease. Patient continues to complain of persistent fatigue, though this has improved since her last visit. She is walking on a regular basis, she continues to remain weight neutral though she describes early satiety and intermittent GI symptoms. She does admit to some persistent depressive symptoms, as well as continuing to smoke. She continues with persistent anemia with a hemoglobin 10.0, and CKD. Patient is most concerned today, about her who is having health issues in [place]. Her son is currently with him, but she is hoping to join him after her next oncology appointment. She is currently living alone, but does have support of her friends and neighbors. Patient's past medical history includes hypertension, hyperlipidemia, cardiac stent, persistent anemia, vaginal prolapsed with pessary, recent cataract surgery. Social History - Living Situation Living arrangement: At home Living Situation: Alone Support System: Patient and her split time between [facility] and [place], currently she is alone. He is doing poorly with his recent eye surgeries and infections. She is worried about him, but has her son down there providing support. She does have very good neighbors, and feels she could reach out to family if needed. Medications/Allergies - Medications Home Medications: Ambulatory Orders Medication Instructions Recorded Confirmed Atorvastatin Calcium 40 mg PO DAILY 03/23/18 06/03/20 Famotidine 40 mg PO BID 03/23/18 06/03/20 estradioL [Estradiol] 0.5 mg PO DAILY 03/23/18 06/03/20 Losartan [Cozaar] 25 mg PO DAILY 04/20/19 06/03/20 Ascorbic Acid [Vitamin C] 1,000 mg PO DAILY 06/05/19 06/03/20 Aspirin [Aspirin EC] 1 tab PO DAILY 06/05/19 06/03/20 Azelaic Acid [Finacea] 1 applic TD BID PRN 06/05/19 06/03/20 Calcium Citrate/Vitamin D3 1 tab PO DAILY 06/05/19 06/03/20 [Citracal-Vit D3 200 mg-250 Tab] Cyanocobalamin (Vitamin B-12) 1,000 mcg PO DAILY 06/05/19 06/03/20 [B-12] Lactobacillus Rhamnosus GG 1 cap PO DAILY 06/05/19 06/03/20 [Culturelle] Ondansetron [Ondansetron Odt] 8 mg PO Q8HR PRN 07/04/19 06/03/20 Acetaminophen [8Hr Arthritis Pain] 650 mg PO TID 10/02/19 06/03/20 Multivitamin [Multiple Vitamins] 1 tab PO DAILY 01/08/20 06/03/20 Docusate Sodium [Dss] 1 tab PO DAILY 04/08/20 06/03/20 polyethylene glycoL 3350 [Miralax] 17 gm PO DAILY PRN 04/08/20 06/03/20 - Allergies Allergies/Adverse Reactions: Allergies Allergy/AdvReac Type Severity Reaction Status Date / Time Sulfa (Sulfonamide AdvReac Emesis Verified 06/03/20 13:45 Antibiotics) Review of Systems - Constitutional Constitutional: reports: Fatigue (somewhat improved), Weight stable - Eyes Eyes: reports: Other (improved vision with cataract surg) - Ears, Nose & Throat Ears, Nose & Throat: reports: Postnasal drainage (will restart Flonase), Dry mouth - Cardiovascular Cardiovascular: denies: Chest pain, Edema - Respiratory Respiratory: reports: Cough. denies: SOB at rest - Gastrointestinal Gastrointestinal: reports: Abdominal pain (intermittent LLQ sharp stabbing pains), Early satiety. denies: Constipation, Nausea, Reflux/heartburn - Genitourinary Genitourinary: reports: Frequency - Musculoskeletal Musculoskeletal: reports: Stiffness - Integumentary Integumentary: reports: Dryness - Neurological Neurological: reports: General weakness - Psychiatric Psychiatric: reports: Depression. denies: Anxiety - Hematologic/Lymphatic Hematologic/Lymphatic: reports: Anemia (10.0). denies: Recurrent infections (no recent UTIs; using estrogen cream 2x week) - All Other Systems All Other Systems: reports: Reviewed and negative Physical Exam - Vital Signs Pulse Rate: 71 Respiratory Rate: 18 O2 Saturation: 96 (ra @ rest) Blood Pressure: 119/73 - Physical Exam General Appearance: positive: No acute distress, Alert Eyes Bilateral: positive: Normal inspection ENT: positive: No signs of dehydration Neck: positive: Trachea midline Cardiovascular: positive: Regular rate & rhythm Respiratory: positive: No respiratory distress, Diminished throughout. negative: Wheezes, Rales, Rhonchi Abdomen: positive: Non-tender, Soft, Nml bowel sounds. negative: Distended Skin: positive: Dryness Extremities: positive: No pedal edema Neurologic/Psychiatric: positive: Oriented x3, Mood/affect nml Palliative Care - POLST Patient has POLST: No Pain: Pain unchanged, Location (intermittent sharp stabbing LLQ; mild RUQ tenderness; lower back pain persistent uses APAP if needed;) Tiredness/Fatigue: Mild (1-3) Drowsiness/Sedation: None Nausea: None Anorexia: Mild (1-3) Dyspnea: Mild (1-3) Depression: Moderate (4-6) Anxiety: Moderate (4-6) Feelings of wellbeing/Perceived Quality of Life: Good, Acceptable, Improved Sleep: Variable sleep pattern (up 2 x night to void) Constipation: No Performance Status: Patient has done better physically, is walking daily, has improved her endurance. She continues to pace herself but she does fatigue easily, she is able to manage her ADLs. - Palliative Care Discussion: Discussion centered on her current stressors related to her 's health, and the restrictions with the pandemic. She does feel well supported by her family, but is currently living alone. She does have friends that she can call on, she does meet with a neighbor daily to go walking. She is hoping for more quantity of time, though does recognize the seriousness of her illness.She does have underlying anxiety, but feels it is currently manageable. But does report some persistent depressive feelings. Results - Lab Results Lab results reviewed: Yes Impression and Recommendations - Palliative Care Impression: This is a rashi 80-year-old woman with relapsed gallbladder cancer, currently on surveillance. She is due for restaging scans end of August, is anxious to have these and join her in [place]. She continues with some persistent fatigue, but continues to improve overall. Palliative care continue provide support for symptom management and anticipatory guidance as indicated. Recommendations/Counseling Done: 1. Allergies. She did change her antihistamine to Claritin, has found this more effective, though with increased nasal congestion. Most likely related to the smoke, encouraged to restart Flonase on a regular basis. 2. Back pain secondary to DJD. Patient using APAP with good relief, no further deterioration or exacerbation of pain. This is been long-term, she does pace herself to manage. 3. Fatigue. This is multifactorial, patient CBC within normal range, TSH okay. 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 Patient did not want to do sleep lab, is to do a home program monitoring in the next couple weeks. 4. Depression. Patient continues with persistent depressive symptoms, these fluctuate, are appropriate given her stressors and pandemic limitations. She is using self-care behaviors, support from her neighbors and family. She does not feel she needs further support at this point in time, she is aware of other team members available. 5. Advanced care planning. Patient would like to get information prior to returning back to [place], she continues to hope for the best, is aware of the seriousness of her illness. 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 At this point in time is okay with current plan of surveillance, does get anxious if gets too far ahead of herself. Encouraged again to write down questions for her oncology patient visit.Patient is to reach out if she has any further issues palliative care can provide support, plan to see her when she returns after the holidays. Time Spent: 50 minutes with greater than 50% of this done in counseling regarding patient's current anxiety/depression coping, symptoms, anticipatory guidance and coordination of care with oncology team.
== END 2020-07-18 13:41 | disposition home or self-care (01) ==
LOC: PC 13:40
PROVIDERS: ATTEND Nurse Practitioner Adult Health
DX: Z51.5 Encounter for palliative care (principal); Z91.09 Other allergy status, other than to drugs and biological substances; M47.9 Spondylosis, unspecified; R53.83 Other fatigue; F32.9 Major depressive disorder, single episode, unspecified; R10.32 Left lower quadrant pain; I12.9 Hypertensive chronic kidney disease with stage 1 through stage 4 chronic kidney disease, or unspecified chronic kidney disease; N18.9 Chronic kidney disease, unspecified; F17.200 Nicotine dependence, unspecified, uncomplicated; Z85.89 Personal history of malignant neoplasm of other organs and systems
CPT/HCPCS: 99215

== ENCOUNTER 2020-08-04 19:30 | Outpatient (CLI) | payer MEDICARE, OTHER | END 2020-08-04 23:59 | disposition home or self-care (01) | LOC: SC 19:30 | PROVIDERS: ATTEND Nurse Practitioner Family | DX: G47.10 Hypersomnia, unspecified (principal); R53.83 Other fatigue; R06.83 Snoring; G47.8 Other sleep disorders; E66.3 Overweight; Z68.26 Body mass index [BMI] 26.0-26.9, adult | CPT/HCPCS: G0399 ×2; 95806 ==

== ENCOUNTER 2020-08-21 14:50 | Outpatient (CLI) | payer MEDICARE, OTHER ==
--- NOTE | 2020-08-21 15:17 | SLEEP CARE CONSULTATION ---
Information from patient questionnaire entered by Tito Manuel. I have reviewed and concur with the information entered by Tito Manuel. This document represents the service I personally performed and the decisions made by , Felisa Ocasio ARNP. History of Present Illness Service Date and Time: 08/21/2020 1450 Initial [place] Sleepiness Scale score: 6 (in 2019) Current [place] Sleepiness Scale score: 4 Additional HPI information: NELSON MORIN returns for follow up and results of the recently performed home sleep study. The patient was informed of the following findings: Her HST showed no significant sleep disordered breathing with an average AHI 0.1. Her tyler oxygen saturation was 90.1%. I explained the pathophysiology behind obstructive sleep apnea. Patient does not have sleep apnea and was advised how weight gain could increase the risk of developing sleep apnea in the future. Patient has mild snoring. Snoring can be reduced by weight loss. Weight loss is best achieved with diet consult. Patient instructed to contact PCP for referral. Snoring can also be treated with an oral appliance from a dentist. Advised to check insurance coverage. In addition, an ENT evaluation can be do to see if other treatment is indicated. Patient does not drink alcohol. Patient denies drowsy driving. Sleep Study - Results Type of Sleep Study: Home sleep study Prior sleep studies: No Polysomnography/Home Sleep Study results: SLEEP TIME AND EFFICIENCY: The sleep study recording began at 12:13:38 AM and ended at 10:16:20 AM. Total recording time was 602.7 minutes. The total sleep time was 536.0 minutes. The sleep efficiency was 88.9 percent. The patient spent 41.0 minutes supine, and spent 495.0 minutes non-supine. The patients own estimate of sleep time was 10.20 hours. RESPIRATORY DATA: The AHI in this report is indexed to sleep time based on actigraphy. The AASM defines this as YASMEEN. The AHI on this type 3 Home Sleep Study may understate the AHI determined on a type 1 or 2 study, since EEG is not monitored resulting in the inability to score non-desaturating hypopneas. Based on 4% Calculation: The AHI4% calculation of 1.0 per hour of recording time was based on a total of 9 scored apneas and 0 scored hypopneas with 4% desaturations. Supine AHI4%: 0.0 per hour. Non-supine AHI4%: 1.1 per hour. Oxygen Summary: Patient's baseline O2 saturation was 98.7 %. The patient spent 0.0 minutes at an oxygen saturation less than 90%, and 0.0 minutes less than 85%. The desaturation index was 0.3 events per hour sleep time. The lowest saturation was 90.1 %. SNORING: The percent of the study time spent snoring was 0.0 %. The Snoring Count was 0 . The Snoring Index was 0.0 . PULSE RATE REVIEW: The mean heart rate was 55 beats per minute. The rate ranged from a low of 44 to a high of 90 beats per minute. DIAGNOSIS CODE: suspected Obstructive Sleep Apnea (ICD-10 G47.30) Impression: The test quality is good. The test duration is adequate. The patient slept almost exclusively in non-supine positions. The respiratory data revealed no significant sleep disordered breathing or hypoxemia. The pulse rate was within normal limits. Allergies and Home Medications Drug allergies reviewed: Yes (sulfa) Home medication list reviewed: Yes (no changes) Review of Systems Review of systems same as previous: Yes (no changes) Physical Exam Heart Rate: 71 O2 Saturation: 95 Height: 5 ft 2 in Weight: 143 lb Body Mass Index: 26.2 BMI Classification: Overweight Impression and Plan 1. Fatigue, unspecified. Her fatigue is most likely connected to her cancer and chemo treatments. She is also going through a lot of high life stressors with her own health, her is having health challenges and is not at home, leaving her alone at home. She does feel she has lost interest in things that she used to enjoy. I advised her that she may have some depression contributing to her fatigue. She states she does have a good support network with friends and caregivers that does help her feel better. I advised that she may benefit from counseling and regular exercise. She should follow up with her oncologist or PCP for further evaluation of her fatigue and possible depression. 2. Snoring (mild) but no significant sleep disordered breathing. Patient advised that often weight loss will reduce snoring as well as apnea risk. An oral appliance can also be used for snoring. This would require a dental consultation. Patient cautioned not to use other online appliances as can cause bite issues. A list of accredited dentists in [facility] and one local dentist who makes oral appliances given. Patient is advised to check if insurance will cover. An ENT consult can also be helpful to determine if any other treatment is an option. * Follow up with oncologist or PCP for further evaluation of her fatigue * Avoid alcohol consumption near bedtime * The patient is cautioned about driving until sleepiness is completely resolved. * Return as needed for worsening symptoms or a change in symptoms. Counseling Topics: Activity level Visit Type: In Office Time Spent with Patient (minutes): 16 Provider Statement: I spent 100% of the Face to Face Visit with the patient with greater than 50% spent counseling the patient and coordination of care.
== END 2020-08-21 14:51 | disposition home or self-care (01) ==
LOC: SC 14:50
PROVIDERS: ATTEND Nurse Practitioner Family
DX: R53.83 Other fatigue (principal); R06.83 Snoring; E66.3 Overweight; Z68.26 Body mass index [BMI] 26.0-26.9, adult
CPT/HCPCS: 99212; G0463

== ENCOUNTER 2020-09-14 10:38 | Outpatient (CLI) | payer MEDICARE, OTHER ==
--- NOTE | 2020-09-14 19:23 | CT Report ---
PROCEDURE: CHEST WO INDICATIONS: GALLBLADDER CA TECHNIQUE: Noncontrast 5 mm thick sections acquired from the pulmonary apices to the posterior costophrenic angl es. 7 mm thick coronal and sagittal MIP reformats were then acquired. For radiation dose reduction, the following was used: automated exposure control, adjustment of mA and/or kV according to patient size. COMPARISON: 02/29/2020 FINDINGS: Image quality: Excellent. Lungs and pleura: No acute air space opacities. No pleural effusions or pneumothorax. Central and peripheral airways are patent . Stable appearance of mild bronchiectasis of the bilateral hemithorace s. No septal thickening or nodularity. No suspicious pulmonary nodules or mass lesions. Mediastinum: Heart size is normal. Mild atherosclerotic calcifications of the coronary arteries and thoracic aorta. All No pericardial effusion. No mediastinal adenopathy by size criteria. Thoracic a ambreen and central pulmonary arteries are normal in size. Esophagus is normal in caliber. No hiatal h ernia. Bones and chest wall: No suspicious bony lesions. No acute vertebral body compression fractures. N o axillary or supraclavicular adenopathy by size criteria. The thyroid is normal in size. Right lakesha neled port device is in place. Abdomen: Stable postoperative changes within the gallbladder fossa. This is better evaluated on dedi cated imaging of the abdomen and pelvis obtained same day. Please see separate report for details. Ot herwise, the visualized upper abdominal solid organs and bowel loops appear normal in the absence of contrast. IMPRESSION: 1. CT chest without evidence for metastatic disease. 2. No acute cardiopulmonary abnormalities. 3. Stable appearance of mild bronchiectasis of the bilateral hemithoraces. Reviewed by: Sergio Braden MD on 09/14/2020 6:21 PM [facility] Approved by: Sergio Braden MD on 09/14/2020 6:21 PM [facility] Station ID: [id number]
--- NOTE | 2020-09-14 19:38 | CT Report ---
PROCEDURE: Abdomen/Pelvis WO INDICATIONS: GALLBLADDER CA TECHNIQUE: Noncontrast 5 mm thick sections acquired from the diaphragms to the symphysis. 5 mm coronal and sagi ttal reformats were then performed. For radiation dose reduction, the following was used: automated exposure control, adjustment of mA and/or kV according to patient size. COMPARISON: None. FINDINGS: Image quality: Excellent. ABDOMEN: Lung bases: Lung bases are clear. Heart size is normal. Solid organs: Liver and spleen are normal in size. Gallbladder has been surgically removed. There is stable to decreased conspicuity of previously described hypoattenuating lesion adjacent to the gallb ladder fossa and the falciform ligament. Numerous surgical clips are seen within this hypoattenuating region. Measured on image 22, series 2, this hypodense lesion measures approximately 3.3 x 2.0 cm ve rsus 4.0 cm x 2.0 cm on the prior study measured at a similar level (image 38, series 2). There are n o new hypodense lesions identified within the liver. Pancreas is normal in contours. No adrenal nodu les. Kidneys are normal in size, without hydronephrosis or nephrolithiasis. Peritoneum and bowel: Unenhanced bowel loops demonstrate normal wall thickness and caliber. No free fluid or air. Scattered colonic diverticula without acute inflammation. Nodes and vessels: No retroperitoneal or mesenteric adenopathy by size criteria. Aorta and inferior vena cava are normal in caliber. Scattered atherosclerotic calcifications as before. Miscellaneous: Fat-containing ventral hernia without acute inflammation is again noted. This is seen near the level of the left hepatic lobe. PELVIS: Genitourinary: Bladder wall thickness is normal. A pessary ring is noted. Miscellaneous: No inguinal hernias or adenopathy. Bones: No suspicious bony lesions. No acute vertebral body compression fractures. Multilevel spond ylosis seen throughout the imaged spine but most severe at L1-2 as before. IMPRESSION: CT abdomen and pelvis without acute abnormalities. Status post cholecystectomy with stable appearance of ill-defined hypodense lesion adjacent to the ga llbladder fossa and falciform ligament. No new hepatic lesions. No evidence to suggest tumor recurren ce or distant metastases. Atherosclerotic vascular disease. Multilevel spondylosis most severe at L1-2. Colonic diverticulosis without acute diverticulitis. Reviewed by: Sergio Braden MD on 09/14/2020 6:36 PM [facility] Approved by: Sergio Braden MD on 09/14/2020 6:36 PM [facility] Station ID: [id number]
== END 2020-09-14 10:39 | disposition home or self-care (01) ==
LOC: DI 10:38
PROVIDERS: ATTEND Internal Medicine Hematology & Oncology
DX: C23 Malignant neoplasm of gallbladder (principal); Z90.49 Acquired absence of other specified parts of digestive tract; J47.9 Bronchiectasis, uncomplicated; M47.816 Spondylosis without myelopathy or radiculopathy, lumbar region; K57.30 Diverticulosis of large intestine without perforation or abscess without bleeding
CPT/HCPCS: 71250; 74176

== ENCOUNTER 2021-04-08 12:07 | Outpatient (CLI) | payer MEDICARE, OTHER ==
[2021-04-08] MEDS ORDERED: IOPAMIDOL-300 50 ML VIAL ONE (12:20)
[2021-04-08] MEDS ORDERED: IOVERSOL 320 100 ML VIAL IVP ONE ×2 (12:20→20:58)
--- NOTE | 2021-04-08 18:04 | CT Report ---
PROCEDURE: CHEST W INDICATIONS: GALLBLADDER CA CONTRAST: IV CONTRAST: Optiray 320 ml: 100 PO CONTRAST: Isovue 300 ml50 TECHNIQUE: After the administration of intravenous contrast, 5 mm thick sections acquired from the pulmonary api jaime to the posterior costophrenic angles. 7 mm thick coronal MIP reformats were acquired. For radia tion dose reduction, the following was used: automated exposure control, adjustment of mA and/or kV according to patient size. COMPARISON: CT chest 09/14/2020.. FINDINGS: Image quality: Excellent. Lungs and pleura: No acute air space opacities. No suspicious pulmonary nodule. Small calcified gran uloma. Minimal subpleural reticular thickening. No pleural effusions or pneumothorax. Central airway s are clear. Minimal bronchiectasis. Mediastinum: Heart size is normal. No pericardial effusion. No mediastinal or hilar adenopathy by size criteria. Thoracic aorta and central pulmonary arteries are normal in size. Esophagus is tere l in caliber. No hiatal hernia. Bones and chest wall: No suspicious bony lesions. No vertebral body compression fractures. No axil linda or supraclavicular adenopathy by size criteria. The thyroid is normal in size and there are no incidental findings.. Abdomen: Please see separately dictated same day CT abdomen and pelvis. IMPRESSION: No metastatic disease identified in the chest. Reviewed by: Cisco Rick MD on 04/08/2021 6:02 PM PDT Approved by: Cisco Rick MD on 04/08/2021 6:02 PM PDT Station ID: [id number]
--- NOTE | 2021-04-08 18:11 | CT Report ---
PROCEDURE: Abdomen/Pelvis W INDICATIONS: GALLBLADDER CA CONTRAST: IV CONTRAST: Optiray 320 ml: 100 PO CONTRAST: Isovue 300 ml50 TECHNIQUE: After the administration of oral and intravenous contrast, 5 mm thick sections acquired from the diap hragms to the symphysis. 5 mm thick coronal and sagittal reformats were acquired. For radiation dos e reduction, the following was used: automated exposure control, adjustment of mA and/or kV accordin g to patient size. COMPARISON: CT abdomen and pelvis without contrast 09/14/2020. CT abdomen pelvis with contrast 11/13/19. FINDINGS: Image quality: Excellent. ABDOMEN: Lung bases: No pleural effusion. Heart size is normal. Solid organs: Tiny hypodense foci in the liver are unchanged. Surgical clip inferior to the liver. Ga llbladder is surgically absent. Hypoenhancing soft tissue density at the gallbladder fossa is grossly unchanged in size. Biliary system is non dilated. Pancreas is atrophic. No splenomegaly. No adrenal nodules. Kidneys demonstrate normal size and enhancement, without hydronephrosis. Peritoneum and bowel: Bowel loops demonstrate normal wall thickness and caliber. Diverticulosis. No free fluid or air. Nodes and vessels: No retroperitoneal or mesenteric adenopathy by size criteria. Aorta and inferior vena cava are normal in size. Miscellaneous: No ventral hernias. PELVIS: Genitourinary: Bladder is unremarkable. Uterus is absent. Pancreas reason place. Miscellaneous: No inguinal hernias or adenopathy. Bones: No suspicious bony lesions. Severe DDD at L1-L2, unchanged. No vertebral body compression fr actures. IMPRESSION: 1. Hypodense soft tissue at the gallbladder fossa is unchanged. 2. Small hypodense foci in the liver are unchanged. 3. No adenopathy. Reviewed by: Cisco Rick MD on 04/08/2021 6:09 PM PDT Approved by: Cisco Rick MD on 04/08/2021 6:09 PM PDT Station ID: [id number]
[2021-04-08] MEDS ORDERED: IOPAMIDOL-300 50 ML VIAL PO ONE (20:58)
== END 2021-04-08 12:08 | disposition home or self-care (01) ==
LOC: DI 12:07
PROVIDERS: ATTEND Internal Medicine Hematology & Oncology
DX: Z08 Encounter for follow-up examination after completed treatment for malignant neoplasm (principal); Z85.09 Personal history of malignant neoplasm of other digestive organs

== ENCOUNTER 2021-08-18 15:15 | Outpatient (CLI) | payer MEDICARE, OTHER ==
--- NOTE | 2021-08-19 05:16 | CONSULTATION NOTE ---
Palliative Care Follow Up - Referral Referring Provider: Dr. Clovis Marie Time of Visit: 1515 45 minutes VISIT 08/18/2021Wednesday Referral setting: MAC Referral Reason: Anxiety/Fatigue/Relapse Gallbladder on active surveillance - Information Sources Records reviewed: Previous records reviewed History/Review of Systems obtained from: Patient Exam limitations: No limitations - History of Present Illness Update Brief HPI Update: This is a rashi 81-year-old woman who was initially diagnosed with gallbladder stage II in 05/2016 in [place], she had a resection followed by adjuvant gemcitabine 03/2017. She then presented with relapsed gallbladder since 09/2018, received cis-e[place]/gemcitabine with partial response, PET scan 03/2019 showed persistent disease, had poor tolerance for cisplatin and gemcitabine. She received concurrent radiation and Xeloda therapy done in 10/2019. She has been on active surveillance since then, with her latest CT on 04/08/2021 with no evidence of disease. She has split her time between [facility] in [place], we have stayed in contact regarding support and minor symptom management. She did unfortunately this summer developed shingles, has since resolved. She is pending her shingles shot. She is also had continued persistent fatigue, early satiety, and vague intermittent abdominal pain. She continues to remain weight neutral. She continues with intermittent chills, but overall has done fairly well. She is here to get her labs drawn with pending visit with oncology next week. Palliative care meeting with patient regarding ongoing fatigue, anxiety, and takes tablets baseline as well as continued development of rapport. Past Medical History: COPD, hypothyroidism, diverticulitis, depression/anxiety, osteoarthritis, carpal tunnel syndrome, cataracts, CAD with coronary stent and history of [place]. Social History - Living Situation Living arrangement: At home Living Situation: With spouse/s.o. Support System: Patient and her split the time between [facility] and [place]. He is currently in [place], she is home alone. She does have intermittent visits from her children. She feels well supported by her neighbors and community. She feels safe here, has no worries and is managing without difficulty. Unfortunately she lost a stepdaughter to breast cancer this last summer, this is been difficult and continues to grieve appropriately. Medications/Allergies - Medications Home Medications: Ambulatory Orders Medication Instructions Recorded Confirmed Atorvastatin Calcium 40 mg PO DAILY 03/23/18 08/19/21 Famotidine 40 mg PO BID 03/23/18 08/19/21 Losartan [Cozaar] 25 mg PO DAILY 04/20/19 08/19/21 Ascorbic Acid [Vitamin C] 1,000 mg PO DAILY 06/05/19 08/19/21 Aspirin [Aspirin EC] 1 tab PO DAILY 06/05/19 08/19/21 Azelaic Acid [Finacea] 1 applic TD BID PRN 06/05/19 08/19/21 Lactobacillus Rhamnosus GG 1 cap PO DAILY 06/05/19 08/19/21 [Culturelle] Ondansetron [Ondansetron Odt] 8 mg PO Q8HR PRN 07/04/19 08/19/21 Acetaminophen [8Hr Arthritis Pain] 650 mg PO PRN PRN MDD 3000 mg 10/02/1908/08 Multivitamin [Multiple Vitamins] 1 tab PO DAILY 01/08/20 08/19/21 Docusate Sodium [Dss] 1 tab PO DAILY 04/08/20 08/19/21 polyethylene glycoL 3350 [Miralax] 17 gm PO DAILY PRN 04/08/20 08/19/21 Gabapentin [Gralise] 300 mg PO DAILY 04/18/21 08/19/21 Cholecalciferol (Vitamin D3) 2,000 unit PO DAILY 08/19/21 08/19/21 [Vitamin D3] Fluticasone [Flonase] 1 spray MAURICE DAILY 08/19/21 08/19/21 Melatonin 3 mg PO QPM 08/19/21 08/19/21 Tylenol Pm 1 tab PO QPM PRN 08/19/21 - Allergies Allergies/Adverse Reactions: Allergies Allergy/AdvReac Type Severity Reaction Status Date / Time Sulfa (Sulfonamide AdvReac Emesis Verified 04/18/21 15:48 Antibiotics) Review of Systems - Constitutional Constitutional: reports: Fatigue (remains persistent; feels tired frequ), Chills (with cold/temp changes daily), Diaphoresis (occasionally), Weight stable (141) - Ears, Nose & Throat Ears, Nose & Throat: reports: Nasal congestion (improved with flonase) - Respiratory Respiratory: reports: SOB with exertion, Other (still smoking 3 cig/day). denies: SOB at rest - Gastrointestinal Gastrointestinal: reports: Abdominal pain (vague and persistent; worse with eating), Poor appetite, Early satiety. denies: Constipation, Diarrhea, Nausea - Musculoskeletal Musculoskeletal: reports: Stiffness - Integumentary Integumentary: reports: Rash (residual right upper abd from shingles) - Neurological Neurological: reports: General weakness - Psychiatric Psychiatric: reports: Anxiety - Endocrine Endocrine: reports: Intolerance to cold - Hematologic/Lymphatic Hematologic/Lymph: denies: Recurrent infections - All Other Systems All Other Systems: reports: Reviewed and negative Physical Exam - Vital Signs Pulse Rate: 67 Respiratory Rate: 18 Blood Pressure: 146/78 - Physical Exam General Appearance: positive: No acute distress, Alert Eyes Bilateral: positive: Normal inspection ENT: positive: No signs of dehydration Neck: positive: Trachea midline Cardiovascular: positive: Regular rate & rhythm Respiratory: positive: No respiratory distress, Diminished throughout. negative: Wheezes, Rales, Rhonchi Abdomen: positive: Non-tender, Soft, Nml bowel sounds. negative: Distended Skin: positive: Dryness Extremities: positive: No pedal edema Neurologic/Psychiatric: positive: Oriented x3, Mood/affect nml Palliative Care - POLST Patient has POLST: No POLST Status: Full Code Pain: Pain unchanged, Location (upper abdominal area; worse with eating; wrists) Tiredness/Fatigue: Severe (7-10) Drowsiness/Sedation: None Nausea: None Anorexia: Mild (1-3) Dyspnea: None Depression: None Anxiety: None Feelings of wellbeing/Perceived Quality of Life: Good, Acceptable Sleep: Variable sleep pattern Constipation: No Performance Status: Patient continues with good functional status, able to manage her ADLs. Reports she is walking a mile every other day with her neighbor, or at least 5 times a week. She does tire with persistent activity, and continues to struggle with sleep patterns - Palliative Care Discussion: Patient feels like she is doing well overall, she does have significant marina that supports her. She does have at baseline underlying anxiety, and gets quite anxious with surveillance visits, continue to hope for the best though aware at high risk for recurrence. She is actively grieving the loss of her stepdaughter, was a difficult year and recently just completed the in [place]. She does feel like she has good support, but admits that she is jake ting "for the other shoe to drop". Is satisfied with her current quality of life, does have some symptom burden, but feels currently it is tolerable. Impression and Recommendations - Palliative Care Impression: This is a rashi 81-year-old woman with known relapsed gallbladder cancer, on surveillance. She continues with moderate symptom burden, but continues to improve overall. Palliative care meeting with patient to review symptom burden, counseling for anxiety, and anticipatory guidance. Recommendations/Counseling Done: 1. Insomnia. This is long-term been difficult for patient, she does use occasional Tylenol PM. Counseling provided regarding sleep hygiene, encouraged to trial melatonin 3 to 5 mg at bedtime on a regular basis. 2. Fatigue. This is multifactorial, patient is receiving her labs today for pending oncology visit. She continues to struggle with her anorexia, though remained weight neutral. We did discuss patient most likely could use more calories, encouraged to increase her Ensure up to twice a day and/or increased snack intake as does have early satiety. Counseling provided and reviewed strategies to address fatigue. Instructed to continue with her walking program. 3. Neck and shoulder discomfort. Patient provided instruction on stretches and exercises for strengthening as well as stretching. Written instructions provided as well as verbalized understanding. Patient also has carpal tunnel, encouraged to wear her braces at night. 4. Dry skin on hands. Instructed to use Aquaphor ointment and gloves at night for cracking and discomfort. 5. Rhinitis. Flonase has been effective, instructed to continue on a daily basis to manage sinus pressure and nasal congestion. 6. Anxiety. Reviewed patient's current stressors, coping mechanisms, and social support. Counseling provided regarding strategies and normalizing current feelings. 7. Relapse gallbladder cancer currently on active surveillance. Patient due for pending scans and oncology visit. Encouraged to continue to its within her control, counseling to focus on lifestyle changes and support, as well as psychosocial support. 8. Advanced care planning. Patient continues to hope for the best, will await follow-up scans, continue to build rapport, will need to address advance care planning documents, in the context of patient's goals of care. 45 minutes with review of chart, labs, oncology notes and [id number] for counseling and physical exam.
== END 2021-08-18 15:16 | disposition home or self-care (01) ==
LOC: PC 15:15
PROVIDERS: ATTEND Nurse Practitioner Adult Health
DX: Z51.5 Encounter for palliative care (principal); C23 Malignant neoplasm of gallbladder; R53.83 Other fatigue; F41.9 Anxiety disorder, unspecified; J44.9 Chronic obstructive pulmonary disease, unspecified; E03.9 Hypothyroidism, unspecified; F32.9 Major depressive disorder, single episode, unspecified; I25.10 Atherosclerotic heart disease of native coronary artery without angina pectoris; F17.210 Nicotine dependence, cigarettes, uncomplicated; B02.9 Zoster without complications; G47.00 Insomnia, unspecified; M25.519 Pain in unspecified shoulder; M54.2 Cervicalgia; L85.3 Xerosis cutis; I25.2 Old myocardial infarction; Z95.5 Presence of coronary angioplasty implant and graft; Z79.82 Long term (current) use of aspirin; Z79.899 Other long term (current) drug therapy; Z92.3 Personal history of irradiation; J31.0 Chronic rhinitis
CPT/HCPCS: 99215

== ENCOUNTER 2021-09-29 13:38 | Outpatient (CLI) | payer MEDICARE, OTHER ==
[2021-09-29] MEDS ORDERED: IOVERSOL 320 100 ML VIAL IVP ONE (13:56)
[2021-09-29] MEDS ORDERED: IOVERSOL 320 50 ML VIAL ONE (13:57)
[2021-09-29 14:30] LABS: CREATININE 1.2 mg/dL (0.4-1.0)
[2021-09-29] MEDS: IOVERSOL 320 50 ML VIAL PO ONE (15:39)
[2021-09-29] MEDS: IOVERSOL 320 100 ML VIAL IVP ONE (15:39)
--- NOTE | 2021-09-29 17:01 | CT Report ---
PROCEDURE: CHEST W INDICATIONS: GALLBLADDER AND LIVER CA CONTRAST: IV CONTRAST: Optiray 320 ml: 100 PO CONTRAST: Optiray 320 ml50 TECHNIQUE: After the administration of intravenous contrast, 1 mm axial images were acquired from the pulmonary apices through the posterior costophrenic angles. Axial 5 mm soft tissue kernel reconstructions were performed as well as 8 mm axial MIP and coronal and sagittal 5 mm reformations. For radiation dose reduction, the following was used: automated exposure control, adjustment of mA and/or kV according to patient size. COMPARISON: None. FINDINGS: Image quality: Excellent. Lungs and pleura: No acute air space opacities. No pleural effusions or pneumothorax. Central and peripheral airways are patent and normal in caliber. Mediastinum: Heart size is normal. No pericardial effusion. The coronary arteries have atherosclero tic calcifications. No mediastinal or hilar adenopathy by size criteria. Thoracic aorta and central pulmonary arteries are normal in size. Esophagus is normal in caliber. No hiatal hernia. Bones and chest wall: No suspicious bony lesions. No vertebral body compression fractures. Severe d egenerative disc disease at L1-2. No axillary or supraclavicular adenopathy by size criteria. Thyroi d gland is normal. A right chest wall port appears well-positioned. Abdomen: Please see separately dictated CT of the abdomen and pelvis from this date. IMPRESSION: No metastatic disease to the chest. Reviewed by: Daniel Pérez on 09/29/2021 5:00 PM [facility] Approved by: Daniel Pérez on 09/29/2021 5:00 PM PST Station ID: [id number]
--- NOTE | 2021-09-29 17:02 | CT Report ---
PROCEDURE: Abdomen/Pelvis W INDICATIONS: GALLBLADDER AND LIVER CA CONTRAST: IV CONTRAST: Optiray 320 ml: 100 PO CONTRAST: Optiray 320 ml50 TECHNIQUE: After the administration of oral and intravenous contrast, 5 mm thick sections acquired from the diap hragms to the symphysis. 5 mm thick coronal and sagittal reformats were acquired. For radiation dos e reduction, the following was used: automated exposure control, adjustment of mA and/or kV accordin g to patient size. COMPARISON: Prior studies dating back to September 14, 2020. FINDINGS: Inferior chest: No focal consolidation, pleural effusion, or pneumothorax. No cardiomegaly or perica rdial effusion. Coronary artery calcification is present. No significant abnormality. Gallbladder: Cholecystectomy changes. Persistent 3.6 x 3 cm hypodense area in the gallbladder fossa, unchanged. Biliary tree: No intra-or extrahepatic biliary ductal dilatation. Liver: The liver demonstrates normal enhancement, size, and contour. Decreased attenuation liver, sug gesting hepatic steatosis. Scattered subcentimeter hypoattenuating lesions are seen, which may reflec t cysts or hemangiomas. Spleen: Normal enhancement, size and morphology is seen. Pancreas: No contour deforming mass or inflammatory change. Fatty infiltration. Adrenals: Normal size without masses. Kidneys/ureters: Normal size and morphology. No solid masses or hydronephrosis. 5 mm hypoattenuating lesion in the left lower pole, which may represent a cyst. 1.3 cm left parapelvic hypoattenuating les ion, likely presenting a cyst. Vasculature: No evidence of aneurysm or other significant vascular pathology. Lymphatic system: No pathologic enlargement by size criteria. GI/mesentery: No evidence of intestinal obstruction. The ileocecal valve is seen to the left of midli ne. Sigmoid diverticulosis. The appendix is not clearly demonstrated. Peritoneum/Retroperitoneum: No free intraperitoneal gas or large collection. Urinary bladder: The urinary bladder is distended with a smooth thin wall. Pelvic organs: The uterus appears surgically absent. A pessary is seen. Bones/soft tissues: Grade 1 anterolisthesis at L4-5 with uncovering of the disc. Advanced disc height loss at L1-2 with sclerosis of the opposing endplates. 2 fat-containing ventral hernias are seen (series 7, image 32), largest fascial defect measuring 5.5 mm. IMPRESSION: 1.No significant interval change. 2.Redemonstrated hypodense area in the gallbladder fossa, unchanged. Reviewed by: Aryan Aquino MD on 09/29/2021 5:00 PM PST Approved by: Aryan Aquino MD on 09/29/2021 5:00 PM PST Station ID: [id number]
== END 2021-09-29 13:39 | disposition home or self-care (01) ==
LOC: LAB 13:38 → DI 13:39
PROVIDERS: ATTEND Internal Medicine Hematology & Oncology
DX: C23 Malignant neoplasm of gallbladder (principal); C22.8 Malignant neoplasm of liver, primary, unspecified as to type; R93.3 Abnormal findings on diagnostic imaging of other parts of digestive tract
CPT/HCPCS: 36415; 71260; 74177; 82565; Q9967

== ENCOUNTER 2022-01-13 12:36 | Outpatient (CLI) | payer MEDICARE, OTHER ==
--- NOTE | 2022-01-13 13:23 | CT Report ---
PROCEDURE: Sinuses INDICATIONS: Chronic sinusitis TECHNIQUE: Noncontrast 3.0 mm axial images acquired from the frontal sinuses to the mid-sella, with coronal and sagittal reformats. For radiation dose reduction, the following was used: automated exposure control , adjustment of mA and/or kV according to patient size. COMPARISON: None. FINDINGS: There is near complete chronic opacification of the left maxillary sinus with decreased volume of the left maxillary sinus and thickening of the deng indicating chronicity. The left maxillary sinus out flow tract is patent. Right maxillary sinus and right maxillary sinus outflow tract are clear with no bony features indicating chronic or recurrent sinusitis. The bilateral sphenoid sinuses, frontal sinuses, and ethmoid air cells are clear. No bony features of chronic or recurrent sinusitis. Mastoid air cells are clear. No nasal cavity mass. Moderate left deviation of the nasal septum with spurring. IMPRESSION: Chronic left maxillary sinusitis. Moderate leftward nasal septal deviation with spurring. Reviewed by: Cosmo Moon MD on 01/13/2022 1:22 PM PST Approved by: Cosmo Moon MD on 01/13/2022 1:22 PM PST Station ID: [id number]
== END 2022-01-13 12:37 | disposition home or self-care (01) ==
LOC: DI 12:36
PROVIDERS: ATTEND Family Medicine
DX: J32.0 Chronic maxillary sinusitis (principal); J34.2 Deviated nasal septum; J34.89 Other specified disorders of nose and nasal sinuses

== ENCOUNTER 2022-05-15 14:32 | Outpatient (CLI) | payer MEDICARE, OTHER | END 2022-05-15 14:33 | disposition home or self-care (01) | LOC: LAB 14:32 | PROVIDERS: ATTEND Obstetrics & Gynecology | DX: R39.15 Urgency of urination (principal) | CPT/HCPCS: 87086; 87181 ==

== ENCOUNTER 2023-04-23 13:25 | Outpatient (CLI) | payer MEDICARE, OTHER ==
[2023-04-23 13:49] LABS: FECAL OCCULT BLOOD (FIT) NEGATIVE (NEGATIVE)
== END 2023-04-23 13:26 | disposition home or self-care (01) ==
LOC: LAB 13:25
PROVIDERS: ATTEND Family Medicine
DX: D64.9 Anemia, unspecified (principal)
CPT/HCPCS: 82274

== ENCOUNTER 2024-02-07 08:00 | Outpatient (CLI) | payer MEDICARE, OTHER | END 2024-02-07 23:59 | disposition home or self-care (01) | LOC: PC 08:00 | PROVIDERS: ATTEND Nurse Practitioner Adult Health | DX: Z51.5 Encounter for palliative care (principal); R97.8 Other abnormal tumor markers; Z85.09 Personal history of malignant neoplasm of other digestive organs; M25.511 Pain in right shoulder; R20.0 Anesthesia of skin; Z63.8 Other specified problems related to primary support group; Z60.2 Problems related to living alone; R63.0 Anorexia; R53.83 Other fatigue; R63.4 Abnormal weight loss; R06.09 Other forms of dyspnea; R68.81 Early satiety; R73.9 Hyperglycemia, unspecified; M62.81 Muscle weakness (generalized); R05.8 Other specified cough; F41.8 Other specified anxiety disorders; Z71.89 Other specified counseling; Z92.3 Personal history of irradiation; Z92.21 Personal history of antineoplastic chemotherapy; Z79.899 Other long term (current) drug therapy; F17.200 Nicotine dependence, unspecified, uncomplicated | CPT/HCPCS: 99215 ==

== ENCOUNTER 2024-03-13 08:00 | Outpatient (CLI) | payer MEDICARE, OTHER | END 2024-03-13 23:59 | disposition home or self-care (01) | LOC: PC 08:00 | PROVIDERS: ATTEND Nurse Practitioner Adult Health | DX: Z51.5 Encounter for palliative care (principal); R73.9 Hyperglycemia, unspecified; C23 Malignant neoplasm of gallbladder; R53.83 Other fatigue; F41.8 Other specified anxiety disorders; R05.9 Cough, unspecified; R68.81 Early satiety; J44.9 Chronic obstructive pulmonary disease, unspecified; F17.200 Nicotine dependence, unspecified, uncomplicated | CPT/HCPCS: 99215 ==

== ENCOUNTER 2024-05-15 14:30 | Outpatient (CLI) | payer MEDICARE, OTHER | END 2024-05-15 23:59 | disposition home or self-care (01) | LOC: PC 14:30 | PROVIDERS: ATTEND Nurse Practitioner Adult Health | DX: Z51.5 Encounter for palliative care (principal); E86.0 Dehydration; R05.9 Cough, unspecified; C23 Malignant neoplasm of gallbladder; F41.8 Other specified anxiety disorders; J32.9 Chronic sinusitis, unspecified; Z71.89 Other specified counseling; Z91.81 History of falling | CPT/HCPCS: 99215 ==

== ENCOUNTER 2024-06-01 13:11 | Outpatient (CLI) | payer MEDICARE, OTHER ==
[2024-06-01 14:39] LABS: BILIRUBIN,URINE NEGATIVE (NEGATIVE); GLUCOSE, URINE (UA) NEGATIVE (NEGATIVE); KETONES,URINE (UA) NEGATIVE (NEGATIVE); LEUKOCYTE ESTERASE, URINE LARGE (NEGATIVE); NITRITE,URINE NEGATIVE (NEGATIVE); OCCULT BLOOD,URINE MODERATE (NEGATIVE); PH,URINE 6.5 PH (5.0-7.5); PROTEIN,URINE NEGATIVE (NEGATIVE); UROBILINOGEN,URINE 0.2 (NORMAL) E.U./dL (NORMAL)
[2024-06-01 14:45] LABS: CLARITY,URINE HAZY (CLEAR)
[2024-06-01 14:58] LABS: BACTERIA,URINE Moderate /HPF (None Seen); SQUAMOUS EPITHELIAL CELL,UR MOD Squamous (<= Few); WBC,URINE >25 /HPF (0-5)
== END 2024-06-01 13:12 | disposition home or self-care (01) ==
LOC: LAB 13:11
PROVIDERS: ATTEND Nurse Practitioner Adult Health
DX: R35.0 Frequency of micturition (principal)
CPT/HCPCS: 81001; 87086